=== PATIENT | male | born 1960 | race Caucasian/White ===

== ENCOUNTER 2024-01-17 19:45 | Inpatient (IN) | payer MEDICARE, SELFPAY ==
[2024-01-17 17:15] VITALS: BP 193/83
[2024-01-17 17:25] VITALS: BMI 44.2
[2024-01-17 17:40] LABS: % Basophils 0.7 % (0-2); % Eosinophils 1.2 % (0-6); % Lymphocytes 13.8 % (20.5-51.1); % Monocytes 9.4 % (1.7-9.3); % Neutrophils 73.9 % (42.2-75.2); Absolute Basophils 0.1 10^3/uL (0-0.2); Absolute Eosinophils 0.2 10^3/uL (0-0.7); Absolute Immature Granulocytes 0.1 10^3/uL (0-0.05); Absolute Lymphocytes 1.9 10^3/uL (1.2-3.4); Absolute Monocytes 1.3 10^3/uL (0.1-0.6); Absolute Neutrophils 10.1 10^3/uL (1.4-6.5); Hematocrit 27.5 % (39.0-52.0); Hemoglobin 9.2 g/dL (13.0-18.0); Mean Corp Hgb Conc. 33.5 g/dL (33.0-37.0); Mean Corpuscular Hgb 28.3 pg (27.0-31.0); Mean Corpuscular Volume 84.6 fL (80.0-94.0); Mean Platelet Volume 10.4 fL (7.4-10.4); Nucleated Red Blood Cells % 0 % (-); Platelet Count 307 10^3/uL (130-400); Red Blood Cell Count 3.25 10^6/uL (4.70-6.10); White Blood Cell Count 13.7 10^3/uL (4.8-10.8)
[2024-01-17 17:42] LABS: Urine Albumin Trace (Neg - Trace); Urine Bilirubin Negative (Negative); Urine Character Very Cloudy (Clear); Urine Color Yellow; Urine Glucose 2+ (Negative); Urine Ketone Negative (Negative); Urine Leukocyte 2+ (Negative); Urine Nitrite Negative (Negative); Urine Occult Blood 1+ (Negative); Urine Urobilinogen Negative (Neg - 1+)
[2024-01-17 17:51] LABS: Urine Red Blood Cell 0-2 /HPF (0-2)
[2024-01-17 17:52] LABS: Urine Bacteria Moderate (Negative); Urine White Cell 30-40 /HPF (0-5)
[2024-01-17 17:54] LABS: ALT (SGPT) 20 U/L (0-50); AST (SGOT) 45 U/L (17-59); Albumin 4.1 g/dl (3.5-5.0); Alkaline Phosphatase 104 U/L (38-126); Blood Urea Nitrogen 47 mg/dl (9-20); Calcium 9.6 mg/dl (8.4-10.2); Carbon Dioxide 16 mmol/L (22-30); Chloride 108 mmol/L (98-107); Estimated Creatinine Clearance 47 ml/min; Glucose 379 mg/dl (70-99); Potassium 5.6 mmol/L (3.5-5.1); Sodium 137 mmol/L (135-145); Total Bilirubin 0.3 mg/dl (0.2-1.3); Total Protein 7.6 g/dl (6.3-8.2)
--- NOTE | 2024-01-17 18:08 | ED.GENMED ---
History of Present Illness
General
Chief Complaint: Chest Pain
Source: patient
Time Seen by Provider: 01/17/24 17:55
Travel History
Have you had any contact with someone who has COVID-19?: No
Do you have any symptoms of coronavirus? Fever > 100 degrees, chills, cough, shortness of breath, sore throat, loss of taste or smell, muscle aches, or headache?: No
History of Present Illness
History of Present Illness:
This patient is a 63-year-old male who says that he was feeling his usual self with the exception of left shoulder pain earlier this week, associated with urinary frequency consistent with UTIs that he had in the past. He saw his primary care
doctor and was diagnosed with UTI and prescribed antibiotics but has not been able to fill the prescription because it was not approved by insurance. However, he also did get a cortisone injection in his left shoulder. He was generally feeling
well until yesterday he says he 'just did not feel right', associated with mild headache, and bilateral neck discomfort as well as across his upper back and left shoulder that feels very 'muscular' in nature. This is worse with certain movements,
and is without radiation. He denies chest pain or pressure, dyspnea, fever, chills, abdominal pain, anorexia, nausea, vomiting, diarrhea, constipation, bleeding. He continues to have urinary frequency but denies dysuria or hematuria.
Past History
Past History
ED Past Medical History: Asthma, GERD, HTN, Hypercholesterolemia, IDDM and Other (Kidney stones)
ED Past Surgical History: Urological
Patient has exhibited threatening behavior?: No
PSI?: No
Social History
Tobacco: Other (chews tobacco and smokes Cigar occasionally)
Alcohol: Occasional
Drug: None
Personal:
Living: alone
Employment: Retired
Family History
Family History: Early CAD
Phy Exam
Physical Exam
Physical Exam:
GENERAL: Alert , in no apparent distress
EYE: pupils equal and reactive
NECK: Supple, no significant adenopathy, no bruit noted.
ENT: o/p clr, mmm.
CARDIAC: Regular rate and rhythm .
LUNGS: Clear breath sounds bilaterally, no acute respiratory distress, no wheezes/rales/rhonchi
ABDOMEN: Soft, without focal tenderness, no r/g, no cvat
NEUROLOGICAL: Alert and oriented, no focal neuro deficits, cranial nerves II through XII intact, [id number] normal, motor 5 out of 5, sensory
SKIN: Warm and dry, skin intact.
MUSCULOSKELETAL: No edema, well perfused.
PSYCH: Normal and appropriate interaction.
Scores
Heart Score for Chest Pain Patients
STEMI patient?: Not applicable
Course
Orders/Labs/Results
Orders:
Orders
01/17/24 Dinner
Cholesterol Lowering
At Your Request: Full Participation
Cholesterol Lowerin chitra/15 CHO Diabetic
Potassium, 2 gram
2200 chitra/18 CHO Diabetic
01/17/24 17:17
EKG [Electrocardiogram (*1)] Urgent
Reason for Study: Chest Pain
EKG- Treatment ONCE
01/17/24 17:27
Electrocardiogram (*1) Urgent
Reason for Study: Chest Pain
Cardiac Monitoring- Treatment ONCE
EKG- Treatment ONCE
IV Insert/Care/Rem.- Treatment PRN
O2 Therapy [RESP] Urgent
Titrate/Wean O2 to maintain O2 sat greater than (%): 90
Special Instructions: Maintain sats >/=90%
Pulse Ox/spot Check [RESP] Urgent
Quantity: 1
Special Instructions: ON ROOM AIR
01/17/24 17:29
Complete Blood Count/With Diff Urgent
Comprehensive Metabolic Panel Urgent
Ferritin Urgent
Comment: ADD ON
Folate Urgent
Comment: ADD ON
Iron Urgent
PTT Urgent
Comment: Obtain baseline before beginning heparin infusion if not already collected
Total Iron Binding Urgent
Troponin I Urgent
Urinalysis Reflex To Culture Urgent
Date Specimen was Collected: 01/17/24
Time Specimen was Collected: 17:27
Urine Microscopic Reflex Cult Urgent
Vitamin B12 Urgent
Comment: ADD ON
Urine Culture Urgent
DIEGO Source: U
Specimen Description:
Date Specimen was Collected: 01/17/24
Time Specimen was Collected: 17:27
01/17/24 18:13
0.9% Sodium Chloride 1000 ml [Nss] 2,100 ml IV NOW STA
Aspirin Chewable [Low Strength Aspirin] 324 mg PO NOW STA
Cefepime HCl [Maxipime] 2,000 mg IV NOW STA
Heparin 4,000 units IV NOW STA
CR Chest - 2 Views Urgent
Comment:
Reason For Exam: neck pain
01/17/24 18:15
Heparin 98656 Units/250 ml 25,000 units in 250 ml IV PER PROTOCOL
Weight to be used for heparin protocol in kilograms (kg):: 131.9
Protocol:: Cardiac Tx/Acute Coronary
PTT Goal Range to be used:: PTT 73 to 111 seconds
Order type:: Initial
INITIAL Infusion Dose (UNITS/KG/hr) & then follow protocol:: 12 units/kg/hr
Infusion Dose in UNITS/hr & then follow protocol (UNITS/hr):: 1,000
INFUSION RATE in mL/hr & then follow protocol (mL/hr):: 10
PTT less than or equal to 64 seconds:: Increase rate by 200 units/hr (+ 2 mL/hr)
PTT 64.1 to 72.9 seconds:: Increase rate by 100 units/hr (+ 1 mL/hr)
PTT 73 to 111 seconds:: Target Range. No change in rate.
PTT 111.1 to 130.9 seconds:: Decrease rate by 100 units/hr (- 1 mL/hr)
PTT 131 to 199.9 seconds:: HOLD for 1 hr. Then decrease rate by 200 units/hr (- 2 mL/hr)
PTT greater than or equal to 200 seconds:: HOLD for 2 hrs & Notify Provider. Then decrease by 200 units/hr (-
2 mL/hr)
Lab follow-up:: Each change, PTT q6h until 2 consecutive are therapeutic. Then PTT
daily.
01/17/24 18:16
EKG- Treatment ONCE
01/17/24 18:28
Lactic Acid Q4H
Comment: CANCEL 2nd LACTIC ACID IF 1st LACTIC ACID IS LESS THAN 2
Blood Culture Q30M
DIEGO Source: Blood/Venous
Specimen Description:
01/17/24 18:37
EKG- Treatment ONCE
01/17/24 18:44
Blood Culture Q30M
DIEGO Source: Blood/Venous
Specimen Description:
01/17/24 18:46
Gentamicin Sulfate [Gentamicin] 200 mg 0.9% Sodium Chloride [Nss] 50 ml IV NOW
01/17/24 19:27
Admit/Transfer Patient As Directed
Co-Sign Provider:
Level of Care: Inpatient admission
Assign to:: IVU
Physician / Group: vargas Montero
Diagnosis: Nstemi, symtpomatic uti
Reason for Hospitalization: Nstemi, symtpomatic uti
Expected length of stay greater than two midnights?: Yes
ELOS- Estimated Length of Stay in days: 4
I certify the patient meets the requirements for IP care: Yes
Code Status As Directed
Resuscitation Status: Full Code
CARDIOLOGY CONSULT Routine
Consulting Provider: Priyanka Perez
Was physician already notified: Yes
Reason for consult: nstemi
01/17/24 20:42
Dextrose 50%-Water [Dextrose 50% Syringe] 12.5 grams IV [id number] PRN
Glucagon [GlucaGen] 1 mg IM PRN PRN
Pantoprazole [Protonix] 40 mg PO BID
01/17/24 20:42
VTE Contraindication Routine
VTE Mechanical Device Contraindication: Medical Contraindication
Pharmocologic Contraindication: Medical Contraindication
Comment: pt on iv heparin
Activity As Directed
Activity Level: As Tolerated
Bedside Glucose Monitoring As Directed
Frequency: AC&HS
Additional Instructions:: Change to q6h if pt on TPN, tube feeding or not eating
Vital Signs As Directed
Frequency: Per unit guidelines
Ot Eval And Treat Routine
Pt Eval And Treat Routine
Activity Level: As Tolerated
01/17/24 22:30
Troponin I Q6H
01/18/24 00:32
PTT Urgent
Comment: serial ptt heparin protocol
01/18/24 07:26
Cardiovascular Evaluation IN AM
Complete Blood Count/With Diff IN AM
Comprehensive Metabolic Panel IN AM
Troponin I Q6H
01/18/24 07:30
Insulin Aspart Pen [Novolog Flexpen] 5 units SC AC
01/18/24 08:00
Aspirin Chewable [Low Strength Aspirin] 81 mg PO DAILY
Cefepime HCl [Maxipime] 1,000 mg IV Q12H
Finasteride [Proscar] 5 mg PO DAILY
dulaglutide [Trulicity] See Dose Instructions SC SA
01/18/24 18:00
Atorvastatin [Lipitor] 40 mg PO QPM
01/19/24 04:58
Complete Blood Count/With Diff IN AM
Comprehensive Metabolic Panel IN AM
01/20/24 05:04
Complete Blood Count/With Diff IN AM
Comprehensive Metabolic Panel IN AM
01/21/24 04:41
Complete Blood Count/With Diff IN AM
Comprehensive Metabolic Panel IN AM
Abnormal Lab Results
01/17/24
17:29
WBC 13.7 H 10^3/uL
(4.8-10.8)
RBC 3.25 L 10^6/uL
(4.70-6.10)
Hgb 9.2 L g/dL
(13.0-18.0)
Hct 27.5 L %
(39.0-52.0)
Abs Immat Gran (auto) 0.1 H 10^3/uL
(0-0.05)
Absolute Neuts (auto) 10.1 H 10^3/uL
(1.4-6.5)
Absolute Monos (auto) 1.3 H 10^3/uL
(0.1-0.6)
Immature Gran % 1.0 H %
(0-0.5)
Lymphocytes % 13.8 L %
(20.5-51.1)
Monocytes % 9.4 H %
(1.7-9.3)
Potassium 5.6 H mmol/L
(3.5-5.1)
Chloride 108 H mmol/L
(98-107)
Carbon Dioxide 16 L mmol/L
(22-30)
BUN 47 H mg/dl
(9-20)
Creatinine 2.1 H mg/dL
(0.7-1.3)
Glucose 379 H mg/dl
(70-99)
Iron 39 L ug/dl
(49-181)
% Saturation 9 L %
(20-50)
Ferritin 8.6 L ng/ml
(17.9-464.0)
Troponin I 8.540 H* ng/ml
Ur Occult Blood Reflex 1+ A
(Negative)
Leukocyte Esterase Rfl 2+ A
(Negative)
Urine WBC (Reflex) 30-40 A /HPF
(0-5)
Urine Bacteria (Reflex) Moderate A
(Negative)
Urine Glucose 2+ A
(Negative)
01/17/24 17:29
01/17/24 17:29
Vital Signs
Initial and Last Documented VS:
Initial Vital Signs
Temp Pulse Resp BP Pulse Ox
98.1 F 102 20 193/83 97
01/17/24 17:15 01/17/24 17:15 01/17/24 17:15 01/17/24 17:15 01/17/24 17:15
Last Documented Vital Signs
Temp Pulse Resp BP Pulse Ox
98.9 F 68 18 114/74 98
01/21/24 11:06 01/21/24 12:45 01/21/24 11:06 01/21/24 11:17 01/21/24 11:06
*Critical Care Note
Total Time (30-74mins, 75-104mins- exclusive of procedures): 35
Update Note
Update Note:
Patient presents to the Emergency Department with
Number and Complexity of Problems Addressed at the Encounter
� Chronic conditions affecting care:
� Acute Exacerbation and/or Progression of Chronic Illness:
� Differential Diagnosis includes:
Amount and/or Complexity of Data to be Reviewed and Analyzed
� I performed an independent evaluation of and my interpretation is:
EKG: Read by me, sinus tachycardia, normal axis, no acute ischemia noted
CT:
Xrays:
Laboratory Studies: Baseline anemia noted, new white blood cell count elevation which may be consistent with patient's UTI seen on UA here and/or related to cortisone injection the patient got earlier this week. Continued renal
insufficiency, new mild metabolic acidosis with mild hyperkalemia. Hyperglycemia which again may be related to cortisone injection. Anion gap is 13, not consistent with DKA
Other:
� Review of other/old records reveals: Admitted August 2022 with brown emesis concern for GI bleed, UTI, CKD/ZAYRA, anemia, etc.
� Clinical information was obtained by an independent historian:
� Prescriptions/Medications Considered but not given:
� Further testing considered but not performed:
Risk of Complications and/or Morbidity or Mortality of Patient Management
� Social determinants of health affecting care:
� Discussion with other providers (PCP, Hospitalists, Consultants, etc):
� Escalation of care including admission/observation vs risk of discharge considered: 6:13 PM critical care alerts via community aide that troponin is equal to 8.54. Patient denies chest pain or shortness of breath at this time.
Will repeat ECG at this time, begin aspirin, heparin, and discussed with cardiology. Will also start antibiotics for UTI.
6:31 PM repeat assessment, patient still denies chest pain or shortness of breath. Case discussed with cardiology, Dr. Brenner from, aware of history, physical, including 'muscular' pain at back and neck, lack of chest pain, etc. He agrees that event
most likely occurred yesterday and he is not necessarily a candidate for immediate catheterization tonight, agrees with aspirin and heparin, admission, and we will recheck troponin later tonight to reassess. [place] text sent to hospitalist for
admission
ED Attending Note
-
Portions of this chart may have been created with voice recognition software.� Occasional wrong word or��sound alike� substitutions may have occurred due to the inherent limitations of voice recognition software.
Discharge Plan
Departure
Patient Disposition: Admit
Date of Disposition: 01/17/24
Time of Disposition: 18:32
Presentation/result/management discussed w/ accepting MD/DO: Hospitalist
Condition: Fair
Discharge Problem:
Non-ST elevation GA (NSTEMI)
Interventions
Interventions:
*Risk Screen - Suicide Last Done: 01/17/24 17:15
*General Assessment Last Done: 01/17/24 17:15
*Neglect/Abuse Screening Last Done: 01/17/24 17:15
ED- Fall Risk Assessment Last Done: 01/17/24 19:31
*ED COVID-19 Vaccine History Last Done: 01/17/24 21:01
*Nursing Disposition Last Done: 01/17/24 20:53
ED- Cardiac Assessment Last Done: 01/17/24 17:36
Discharge Date and Time
Discharge Date/Time: 01/17/24 20:53
[2024-01-17] MEDS: NSS 2100 ML IV (18:29)
[2024-01-17] MEDS: LOW STRENGTH ASPIRIN 324 MG PO (18:39)
[2024-01-17 18:44] LABS: Lactic Acid 1.2 mmol/L (0.7-2.0)
[2024-01-17 18:48] LABS: APTT 31.3 Sec (23.4-35.0)
[2024-01-17] MEDS: HEPARIN 4000 UNITS IV (19:01)
[2024-01-17] MEDS: HEPARIN 25000 UNITS/250 ML IV (19:04)
[2024-01-17] MEDS: MAXIPIME 2000 MG IV (19:07)
[2024-01-17 19:14] VITALS: BP 172/82
--- NOTE | 2024-01-17 19:17 | HPS.HSE ---
Addendum entered and electronically signed by Kareem Montero MD 01/17/24 20:27:
I saw and examined the patient.
The DELI DEPARTMENT MANAGER or PA's note was reviewed and I agree with the note.
Comment:
Patient is pleasant 63 years old with history of insulin-dependent obese mellitus, hypertension, hyperlipidemia, GERD, GI bleeding who came to the ER with bilateral neck discomfort after receiving cortisone injection 2 days ago for left shoulder
pain found to have elevated troponin, leukocytosis, hyperglycemia.
Patient denies chest pain or shortness of breath.
Physical exam:
GENERAL : Patient is awake, alert, oriented x3
HEENT: Nonicteric sclerae, PERRLA, EOMI. Oropharynx clear. Moist mucous membranes. Conjunctivae appear well perfused.
CHEST: Chest wall is nontender.
HEART: Regular rate and rhythm without murmurs.
LUNGS: Clear to auscultation bilaterally.
ABDOMEN: Soft, positive bowel sounds, nontender, no organomegaly.
RECTAL: Deferred.
SKIN: No rash, no excessive bruising, petechiae, or purpura.
NEUROLOGIC: Cranial nerves II-XII intact without motor/sensory deficit.
Assessment/plan:
Non-STEMI.
Continue heparin drip.
Cardiology consult
Insulin-dependent diabetes mellitus.
Continue insulin.
Hyperkalemia
Repeat BMP tonight
Leukocytosis secondary to recent steroid use
UTI
Cefepime
CKD 3B.
Lisinopril, metformin should be discontinued on discharge
Original Note:
Family Physician
-
Family Physician: Pranay Martinez
Chief Complaint
-
left shoulder pain upper back pain bilateral neck discomfort, urinary frequency
History of Present Illness
63-year-old male complaining of left shoulder pain earlier this week he reports receiving a cortisone injection in his left shoulder. He also states bilateral neck discomfort since Keven with movement. He states it is relieved temporarily with
Tylenol but then comes back. Denies any injury to his shoulder but states he is unable to put it behind his neck. He also was prescribed an antibiotic for symptomatic UTI which he was unable to fill as it was not approved by his insurance. He is
complaining of urinary frequency but denies dysuria or hematuria he is complaining of feeling well until yesterday when he developed mild headache today with persistent left shoulder pain, neck pain, posterior back pain. He had history of cardiac
cath in 2018 that was negative. He denies chest pain or pressure, shortness breath, cough, fever, chills, abdominal pain, nausea, vomiting, diarrhea. He has past medical history of hypertension, hyperlipidemia, DM2, GERD, GI bleed, asthma, renal
calculi, cigar smoking, chewing tobacco
Medical History
Past Medical History
Past Medical History: Reports Other
Additional Past Medical History:
hypertension
hyperlipidemia
DM2
GERD
GI bleed
asthma
renal calculi
cigar smoking, chewing tobacco
Sleep apnea/CPAP
BPH
Renal calculi
Gallstone
Depression
Obesity
Past Surgical History: Reports Other
Additional Past Surgical History:
Fracture nose 1964
Cardiac cath 2018 no intervention
TURP
Social History
Tobacco: Other (Occasional chewing tobacco)
Alcohol: Occasional
Drug: None
Personal:
Living: With Family
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
Family History
Family History: Early CAD (Mother age 64 [place], DM2, father age 62 [place], sister at )
Allergies / Home Medications
Allergies reflects when Allergies were last updated in Instagram.
Home Medications with original date entered in Instagram
Allergy/Medication List:
Allergies
Allergy/AdvReac Type Severity Reaction Status Date / Time
codeine [Codeine] Allergy vomiting Verified 01/17/24 17:14
iodine [Iodine] Allergy Anaphylaxis Verified 01/17/24 17:14
Home Medications
insulin lispro 100 unit/mL subcutaneous solution (Humalog U-100 Insulin) 10 unit SC BIDWMEAL Diabetes 10/18/17
dulaglutide 1.5 mg/0.5 mL subcutaneous pen injector (Trulicity) 1.5 mg SC SA Diabetes 08/07/22
metformin 500 mg tablet 500 mg PO BIDWMEAL Diabetes 08/07/22
pantoprazole 40 mg tablet,delayed release 40 mg PO BID 90 days #180 tabs 08/10/22
insulin glargine 100 unit/mL (3 mL) subcutaneous pen (Lantus Solostar U-100 Insulin) 16 unit SC DAILY 10/30/22
atorvastatin 40 mg tablet 40 mg PO QPM 01/17/24
finasteride 5 mg tablet 5 mg PO DAILY 01/17/24
lisinopril 10 mg tablet 10 mg PO DAILY 01/17/24
Review of Systems
-
History Source: Patient
A 12 point ROS was completed and negative except as noted: Yes
Constitutional: Denies Fever or Fatigue
EENT: Denies Sore Throat or Runny Nose
Respiratory: Denies Cough or Trouble Breathing
Cardiac: Denies Chest Pain, Diaphoresis, Palpitations or Syncope
Abdomen/GI: Denies Abdominal Pain, Nausea, Vomiting, Diarrhea, Constipated, Bloody Stools or Black Stools
: Reports Frequency; Denies Dysuria, Flank Pain, Incontinence or Difficulty Voiding
Musculoskeletal: Reports Joint Pain (Left shoulder with limited range of motion secondary to pain); Denies Edema
Skin: Denies Itching or Rash
Neurological: Reports Headache and Other (Pain posterior neck increase with movement); Denies Dizzy or Weakness
Endocrine: Reports No Symptoms
Hematologic/Lymphatic: Reports No Symptoms
Psych: Reports Calm
Physical Exam
Vital Signs
Vital Signs
Temp Pulse Resp BP Pulse Ox
98.1 F 89 15 172/82 97
01/17/24 17:15 01/17/24 19:15 06/14/24 19:15 01/17/24 19:14 01/17/24 19:15
Physical Exam
General: Comfortable, Conversant and Obese; No Fever or Chills
HEENT: NormoCephalic, Anicteric, Moist mucous membranes, PERRLA, [place] Conjunctivae and No Ptosis
Respiratory: Clear; No Wheezes, Rales or Rhonchi
Cardiac: S1/S2 and Tachycardia; No Murmur, Rub, Gallop or Peripheral Edema
Breast: Deferred by me
GI: Soft, Non Tender, Non Distended, Normal Bowel Sounds and No Hepatosplenomegaly
Rectal: Deferred by Provider
Genito-urinary: No costovertebral tender
Musculoskeletal: No Clubbing, No Cyanosis, No Edema and Other (Limited range of motion left shoulder when reaching towards neck due to pain)
Skin: Warm and Dry; No Rash or Jaundice
Neuro: AO x 3, No Motor Deficits, Nonfocal/grossly intact, Cranial Nerves Intact and No Sensory Deficits; No Slurred Speech, Facial Droop or Tremors
Psych: Calm
Laboratory Results
-
01/17/24 17:29
01/17/24 17:29
Laboratory Results
APTT 31.3 Sec (23.4-35.0) 01/17/24 17:29
Lactic Acid Cancelled 01/17/24 22:30
Total Bilirubin 0.3 mg/dl (0.2-1.3) 01/17/24 17:29
AST 45 U/L (17-59) 01/17/24 17:29
ALT 20 U/L (0-50) 01/17/24 17:29
Alkaline Phosphatase 104 U/L (38-126) 01/17/24 17:29
Troponin I 8.540 ng/ml H* 01/17/24 17:29
Impression/Plan
-
Impression/plan:
Admit to IVU
#NSTEMI
Troponin 8.5 will trend, check troponin at 10 PM
-IV heparin drip
-Aspirin 325 mg now 81 mg daily
-Check lipid profile
-2D echo
EKG: Sinus tach 103 bpm, QTc 432 MS
#Hyperkalemia in setting of CKD/hyperglycemia
K5.6
Patient was given 2 L of IV NSS in ER
-Hold lisinopril 10 mg daily
-Check BMP at 10 PM
#Acute leukocytosis likely secondary to UTI/steroid injection left shoulder
WBC 13.7 no shift, afebrile, HR 95
-Blood cultures x 2, [employer]
UA WBC 30-40�mod bacteria +2 leukocyte
-IV cefepime, single dose gentamicin
-IV NSS 2000 cc given in ER
#Left shoulder pain with limited range of motion status post steroid injection 01/13/2024
Denies any injury
-Recommend outpatient follow-up
#Anemia-normocytic/CKD 3B
Patient denies any rectal bleeding or hematuria
Hgb 9.2, MCV 84.6
-Check iron panel, B12, folate
#HTN�benign
BP 193/83
-HOLd lisinopril 10 mg daily
- metoprolol succ 25mg now and daily
#DM 2
BS 379
Accu-Cheks SSI, (HgbA1c 7.5 01/08/2024 was prior 14.2 in 2019)
-Hold metformin
-Continue Trulicity 1.5 mg subcu Saturdays
-Continue lispro 10 units twice daily with meals, Lantus 16 units subcu daily
#CKD 3B
Creat 2.1 was 2.7�07 August 2022
-Follow BMP
#GERD/GI bleed Hx
-Continue Protonix 40 mg twice daily
#Hepatic steatosis
#HLD
Check lipid profile
-Continue atorvastatin
#BPH
-Continue finasteride 5 mg daily
#Sleep apnea/CPAP
unsure setting
#Obesity due to excess calorie consumption�BMI 44.2 kg
Affects all aspects of care
Weight loss recommended, low-fat healthy heart 1800 ADA diet
Other PMH:
Renal calculi
Gallstone
Depression-no current meds
DVT prophylaxis
Patient currently on IV heparin drip
Full code
[2024-01-17] MEDS: GENTAMICIN 55 MG IV (19:18)
--- NOTE | 2024-01-17 19:41 | EDRN ---
Assumed care of pt. at change of shift. Ultrasound guided IV placed to lt. AC, heparin infusion and anitbx. infusion infusing. Pt. is on lining layer, denies chest pain, denies arm pain, denies nausea, denies diaphoresis, denies shortness of
breath. Pt. does continue to have frequent urination, does have known UTI and has fluids infusing. Pt. requests to ambulate to restroom 'because I really struggle with the urinal, I can't go with that'. Pt. able to ambulate to restroom w/ IV pole to
maintain infusions, pt. w/ steady gait, denies dizziness/SOB upon return to stretcher. Remains on lining layer, is in NSR.
[2024-01-17 20:26] VITALS: BP 195/100
[2024-01-17] MEDS: TOPROL XL 25 MG PO (20:27)
[2024-01-17 20:35] LABS: Iron 39 ug/dl (49-181)
[2024-01-17 20:44] LABS: Percent Saturation 9 % (20-50); Total Iron Binding Capacity 399 ug/dl (261-462)
[2024-01-17 20:53] VITALS: BMI 44.8
[2024-01-17 20:54] VITALS: BP 188/81
--- NOTE | 2024-01-17 21:00 | PTCARENOTE ---
Rec'd pt from ED via stretcher, able to ambulate independently into the rm. Pt AAOX3 w/no c/o CP, but pt visibly dyspneic on exertion. Pt w/IV Heparin infusing through patent R hand IV line as ordered. Pt's VS assessed, HR in the 70's, BP elevated
at 188/81, BP on reassessment 137/61. Admission assessment completed. Pt w/call robins within reach & no addtl needs at this time. Plan of care ongoing.
[2024-01-17 21:11] LABS: Ferritin 8.6 ng/ml (17.9-464.0)
[2024-01-17 21:42] LABS: Vitamin B12 562 pg/ml (239-931)
[2024-01-17 21:53] LABS: Glucose - Point of Care 292 mg/dl (70-99)
[2024-01-17] MEDS: PROTONIX 40 MG PO (21:56)
[2024-01-17 23:00] VITALS: BP 137/61
[2024-01-18] VITALS (8 sets, daily range): BP systolic 104–178; BP diastolic 66–92; PULSE 64–73; BMI 45.3
[2024-01-18 00:59] LABS: APTT 62.8 Sec (23.4-35.0)
[2024-01-18 01:21] LABS: Blood Urea Nitrogen 48 mg/dl (9-20); Calcium 9.3 mg/dl (8.4-10.2); Carbon Dioxide 18 mmol/L (22-30); Chloride 111 mmol/L (98-107); Estimated Creatinine Clearance 47 ml/min; Glucose 302 mg/dl (70-99); Potassium 5.6 mmol/L (3.5-5.1); Sodium 138 mmol/L (135-145)
--- NOTE | 2024-01-18 06:27 | W.PN.HOSP.TC ---
Today's Communication/Plan
-
Treat high K
NPO until milieu technician sees him
Treat uncontrolled hyperglycemia
Assessment / Plan
Assessment / Plan
Physical exam:
GENERAL : Patient is awake, alert, not in distress, was using C pap, obese.
HEENT: Nonicteric sclerae, PERRLA, EOMI. Oropharynx clear. Moist mucous membranes. Conjunctivae appear well perfused.
CHEST: Chest wall is nontender.
HEART: Regular rate and rhythm without murmurs.
LUNGS: Clear to auscultation bilaterally.
ABDOMEN: Soft, positive bowel sounds, nontender, no organomegaly.
RECTAL: Deferred.
Psych: no agitation, pleasant
NEUROLOGIC: AAAOX3, followed commands.
# Chest / neck discomfort , mostly with movement
No chest pain over night. EKG NSR
Troponin at 10
Ordered Echo
c/w IV heparin gtt, monitor pTT. NPO until cardiology sees him
c/w aspirin , statin, BB
#Insulin-dependent diabetes mellitus.
High BS due to steroid
AM BS 204
Change to high dose ISS. Given Lantus as BID
# Hyperkalemia due ot CKD/ CHANTEL and uncontrolled hyperglycemia
Will give Lokelma
Stopped Lisinopril
#Leukocytosis secondary to recent steroid use
Possible UTI due to cloudy urine
Urine & blood cultures are pending
Empiric Cefepime
# CKD 3B.
Lisinopril, metformin are stopped
Avoid nephrotoxic
# Obesity BMI 44
Total time spent to see the patient, examine the patient on the floor, review data and lab results, discuss treatment plan with patient, nursing staff around 55 minutes
Anticipated Discharge: > 48 hours
Subjective/Interval History
-
Date of Service: January 18, 2024
Objective Data
-
Labs:
Laboratory Results
01/17/24 01/18/24 01/18/24
17:29 00:32 06:00
WBC Pending
Hgb Pending
Hct Pending
Plt Count Pending
APTT 31.3 62.8 H
Sodium 138 Pending
Potassium 5.6 H Pending
Chloride 111 H Pending
Carbon Dioxide 18 L Pending
BUN 48 H Pending
Creatinine 2.1 H Pending
Glucose 302 H Pending
Calcium 9.3 Pending
Total Bilirubin Pending
AST Pending
ALT Pending
Alkaline Phosphatase Pending
01/18/24
07:10
WBC
Hgb
Hct
Plt Count
APTT Pending
Sodium
Potassium
Chloride
Carbon Dioxide
BUN
Creatinine
Glucose
Calcium
Total Bilirubin
AST
ALT
Alkaline Phosphatase
Vital Signs:
Vital Signs
Temp Pulse Resp BP Pulse Ox
98.4 F 72 20 135/66 99
01/18/24 04:30 01/18/24 04:38 01/18/24 04:30 01/18/24 04:38 01/18/24 04:30
I&O
01/16/24 01/17/24 01/18/24
06:59 06:59 06:59
Intake Total 480 / 480
Balance 480 / 480
[2024-01-18 06:43] LABS: Glucose - Point of Care 204 mg/dl (70-99)
[2024-01-18 07:35] LABS: % Basophils 0.6 % (0-2); % Eosinophils 1.7 % (0-6); % Immature Granulocytes 0.8 % (0-0.5); % Monocytes 9.3 % (1.7-9.3); % Neutrophils 72.6 % (42.2-75.2); Absolute Basophils 0.1 10^3/uL (0-0.2); Absolute Eosinophils 0.3 10^3/uL (0-0.7); Absolute Immature Granulocytes 0.1 10^3/uL (0-0.05); Absolute Lymphocytes 2.3 10^3/uL (1.2-3.4); Absolute Monocytes 1.5 10^3/uL (0.1-0.6); Absolute Neutrophils 11.3 10^3/uL (1.4-6.5); Hematocrit 28.1 % (39.0-52.0); Hemoglobin 8.8 g/dL (13.0-18.0); Mean Corp Hgb Conc. 31.3 g/dL (33.0-37.0); Mean Corpuscular Hgb 27.6 pg (27.0-31.0); Mean Corpuscular Volume 88.1 fL (80.0-94.0); Mean Platelet Volume 10.5 fL (7.4-10.4); Nucleated Red Blood Cells % 0 % (-); Platelet Count 287 10^3/uL (130-400); Red Blood Cell Count 3.19 10^6/uL (4.70-6.10); White Blood Cell Count 15.5 10^3/uL (4.8-10.8)
[2024-01-18 07:53] LABS: APTT 85.1 Sec (23.4-35.0)
--- NOTE | 2024-01-18 08:22 | CON.CAR ---
Addendum entered and electronically signed by Priyanka Perez MD 01/18/24 09:19:
patient is seen and evaluated personally. I agree with the note, documentation and plan of care as below.
63 years old man with hypertension, dyslipidemia, type 2 diabetes mellitus, prior ZAYRA, CKD3b, JOHN on CPAP, obesity, and current chewing tobacco is admitted with UTI and is being terated with antibiotics. The trop was checked and were elevated
significantly. no chest pain or pressure or any angina equivalent. He is diabetic and is at risk of silent ID. His last cath showed no significant CAD. At this time, we will continue to treat him with antibiotics for UTI and heparin for possible ACS
and watch for any chest pain. Dye prep on Saturday night and plan for cath on Saturday.
Original Note:
Consultation
Consultation Request
Date/Time Consultation Requested: 01/17/2024 19:30
Date/Time Consultation Performed: 01/18/2024 08:20
Requesting Provider: JEEVAN Smith
Performing Provider: JEEVAN Cm for Dr. Perez
Reason for Consultation: NSTEMI
Medical History
-
Chief Complaint: Bilateral neck pain
History of Present Illness:
Tristen Riddle is a 63-year-old male with hypertension, dyslipidemia, type 2 diabetes mellitus, prior ZAYRA, CKD3b, JOHN on CPAP, obesity, and current chewing tobacco who presented to the emergency department with a chief complaint of bilateral neck
discomfort. He had seen his PCP for urinary frequency and urgency. He was diagnosed with a UTI. He was awaiting authorization from his insurance for an antibiotic. Earlier this week he received a steroid injection into his left shoulder. He has
been having ongoing left shoulder pain. It does not seem to be exertional. He believes it started about a month ago. He states he is glucose 'skyrocketed' since the injection. Yesterday, he developed a mild headache and his left shoulder pain
persisted. It radiated into his neck and into the middle of his back. He denies associated symptoms of chest pain/pressure, shortness of breath, dizziness, cough, fever, chills, abdominal pain. He presented to the emergency department. He was
given a dose of gentamicin. His troponin on arrival was 8.540. His EKG is stable. He was admitted for further workup. He is on the hospital service and is currently receiving cefepime for his symptomatic UTI.
During his prior hospitalization he was seen by Dr. Mendez.
Past Medical History
Past Medical History: GERD, HTN, Hypercholesterolemia, NIDDM, Renal Failure (Zayra with CKD) and Other (JOHN on CPAP)
Past Surgical History: Urological
Social History
Tobacco: Former Smoker (Occasional tobacco use [cigar currently chews tobacco], )
Alcohol: Occasional
Drug: None
Personal:
Employment: Retired
Family History
Family History: Early CAD (Father and mother in early 60s)
Allergies / Home Medications
Allergy/AdvReac Type Severity Reaction Status Date / Time
codeine [Codeine] Allergy vomiting Verified 01/17/24 17:14
iodine [Iodine] Allergy Anaphylaxis Verified 01/17/24 17:14
�Medication �Instructions �Recorded �Confirmed �Type
insulin lispro 100 unit/mL 10 unit SC BIDWMEAL Diabetes 10/18/17 01/17/24 History
subcutaneous solution (Humalog
U-100 Insulin)
dulaglutide 1.5 mg/0.5 mL 1.5 mg SC SA Diabetes 08/07/22 01/17/24 History
subcutaneous pen injector
(Trulicity)
metformin 500 mg tablet 500 mg PO BIDWMEAL Diabetes 08/07/22 01/17/24 History
pantoprazole 40 mg tablet,delayed 40 mg PO BID 90 days #180 tabs 08/10/22 01/17/24 Rx
release
insulin glargine 100 unit/mL (3 16 unit SC DAILY 10/30/22 01/17/24 History
mL) subcutaneous pen (Lantus
Solostar U-100 Insulin)
atorvastatin 40 mg tablet 40 mg PO QPM 01/17/24 01/17/24 History
finasteride 5 mg tablet 5 mg PO DAILY 01/17/24 01/17/24 History
lisinopril 10 mg tablet 10 mg PO DAILY 01/17/24 01/17/24 History
Review of Systems
-
History Source: Patient
All other systems: Negative unless noted
Constitutional: No Symptoms
Respiratory: No Symptoms
Cardiac: No Symptoms
Abdomen/GI: No Symptoms
: Frequency and Urgency
Musculoskeletal: No Symptoms
Skin: No Symptoms
Neurological: No Symptoms
Endocrine: No Symptoms
Hematologic/Lymphatic: No Symptoms
Physical Exam
Vital Signs
Temp Pulse Resp BP Pulse Ox
97.4 F 72 20 135/66 98
01/18/24 07:00 01/18/24 04:38 01/18/24 07:00 01/18/24 04:38 01/18/24 07:00
Lab Results
01/18/24 07:26
Troponin I 13.900 ng/ml H* D 01/18/24 07:26
Physical Exam
General: Well Developed, Well Nourished, No Apparent Distress and Comfortable
HEENT: Normocephalic, Anicteric and Moist Mucous Membranes
Respiratory: Clear and Non Labored Respirations
Cardiac: S1/S2 and Regular Rhythm
Breast: Deferred by me
GI: Soft, Non Distended and Normal Bowel Sounds
Rectal: Deferred by Provider
Genito-urinary: No Costovertebral Tender
Musculoskeletal: No Clubbing, No Cyanosis and No Edema
Skin: Warm and Dry
Neuro: AO x 3
Hematologic/Lymphatic: No Lymphadenopathy
Psych: Calm
Impression / Plan
-
NSTEMI
-Pain free
-Normal coronary arteries by cardiac catheterization 10/18/2017 prompted by angina with abnormal stress echo
-Trend troponin to peak, currently 13.900
-Continue heparin gtt
-ASA 324mg yesterday, continue 81mg daily
-He will need pre-treatment prior to cardiac catheterization (iodine allergy)
UTI, antibiotics per primary
Hyperkalemia, lisinopril on hold
HTN
-Metoprolol succinate started by primary service
-Hold lisinopril with hyperkalemia
CKD3b
-Chronic moderate hydronephrosis of right kidney
-Follow renal function (he received gentamicin in the ER)
Left shoulder pain S/P cortisone injection
Type II DM, with hyperglycemia, Hgba1c pending
HLD, LDL 51, continue atorvastatin 40mg
Obesity, BMI 44, he would benefit from weight loss
Tobacco use (chew), cessation recommended
JOHN on CPAP
Prior hypercalcemia, stable
BPH
Data Reviewed
-
EKG: Report Reviewed by me (Sins rhythm, rate 93)
Radiology: Report Reviewed by me (CXR: No acute cardiopulmonary process.)
Labs: Labs Reviewed by me
Old Records: Reviewed
[2024-01-18 08:25] LABS: ALT (SGPT) 19 U/L (0-50); AST (SGOT) 49 U/L (17-59); Albumin 3.9 g/dl (3.5-5.0); Alkaline Phosphatase 98 U/L (38-126); Blood Urea Nitrogen 45 mg/dl (9-20); Calcium 9.3 mg/dl (8.4-10.2); Carbon Dioxide 19 mmol/L (22-30); Chloride 113 mmol/L (98-107); Estimated Creatinine Clearance 50 ml/min; Glucose 215 mg/dl (70-99); HDL Cholesterol 40 mg/dl; LDL Cholesterol, Calculated 51 mg/dl; Potassium 5.8 mmol/L (3.5-5.1); Sodium 140 mmol/L (135-145); Total Bilirubin 0.3 mg/dl (0.2-1.3); Total Cholesterol 117 mg/dl (50-199); Total Protein 7.5 g/dl (6.3-8.2); Triglyceride 134 mg/dl (10-149); Very Low Density Lipoprotein 26 mg/dl (0-30); eGFR 36.58
[2024-01-18] MEDS: MAXIPIME 1000 MG IV ×2 (08:32→19:36)
[2024-01-18] MEDS: PROSCAR 5 MG PO (08:33)
[2024-01-18] MEDS: PROTONIX 40 MG PO ×2 (08:33→19:36)
[2024-01-18] MEDS: STERILE WATER FOR INJECTION 10 ML IV ×2 (08:33→19:37)
[2024-01-18] MEDS: LOW STRENGTH ASPIRIN 81 MG PO (08:33)
[2024-01-18] MEDS: TOPROL XL 25 MG PO (08:33)
[2024-01-18] MEDS: LOKELMA 10 GRAM PO (10:07)
[2024-01-18] MEDS: LANTUS 0.149999999999999994 UNITS SC ×2 (10:11→22:37)
[2024-01-18] MEDS: NOVOLOG FLEXPEN 5 UNITS SC (10:12)
[2024-01-18 12:25] LABS: Glucose - Point of Care 228 mg/dl (70-99)
[2024-01-18] MEDS: NOVOLOG FLEXPEN 10 UNITS SC ×2 (13:00→17:00)
[2024-01-18] MEDS: NOVOLOG FLEXPEN-HIGH RESISTANCE 4 UNITS SC ×2 (13:01→17:00)
--- NOTE | 2024-01-18 14:24 | PTCARENOTE ---
assessment as documented. Stable with no c/o chest pain.
[2024-01-18 15:09] LABS: APTT 80.7 Sec (23.4-35.0)
[2024-01-18] MEDS: HEPARIN 25000 UNITS/250 ML IV (16:04)
[2024-01-18 17:03] LABS: Glucose - Point of Care 249 mg/dl (70-99)
[2024-01-18] MEDS: LIPITOR 40 MG PO (17:42)
[2024-01-18] MEDS: TYLENOL 650 MG PO (19:36)
[2024-01-18] MEDS: FLUSH (NSS) 2 FLUSH IV (19:37)
--- NOTE | 2024-01-18 20:00 | PTCARENOTE ---
Assumed care of pt from prev nsg shift. Pt AAOX3 w/no c/o CP, but pt mildy dyspneic on exertion. Pt w/IV Heparin infusing through patent R hand IV line as ordered. Pt's VS assessed, HR in the 70's, BP elevated at 178/91. Pt c/o 4-12/12 anterior
headache. [facility] contacted & ordered entered for PRN PO Tylenol. Tylenol administered as ordered. Pt requesting to go on CPAP early. Resp notified & in to see pt. Pt w/call robins within reach & no addtl needs at this time. Plan of care ongoing.
[2024-01-18 22:42] LABS: Glucose - Point of Care 151 mg/dl (70-99)
[2024-01-19] VITALS (7 sets, daily range): BP systolic 118–172; BP diastolic 64–82; PULSE 58–60
[2024-01-19 05:16] LABS: APTT 100.1 Sec (23.4-35.0)
[2024-01-19 05:28] LABS: % Basophils 0.8 % (0-2); % Eosinophils 2.5 % (0-6); % Immature Granulocytes 1.3 % (0-0.5); % Lymphocytes 23.6 % (20.5-51.1); % Monocytes 8.6 % (1.7-9.3); % Neutrophils 63.2 % (42.2-75.2); Absolute Basophils 0.1 10^3/uL (0-0.2); Absolute Eosinophils 0.4 10^3/uL (0-0.7); Absolute Immature Granulocytes 0.2 10^3/uL (0-0.05); Absolute Lymphocytes 3.9 10^3/uL (1.2-3.4); Absolute Monocytes 1.4 10^3/uL (0.1-0.6); Absolute Neutrophils 10.5 10^3/uL (1.4-6.5); Mean Corpuscular Hgb 27.8 pg (27.0-31.0); Mean Corpuscular Volume 89.5 fL (80.0-94.0); Mean Platelet Volume 10.8 fL (7.4-10.4); Nucleated Red Blood Cells % 0 % (-); Platelet Count 318 10^3/uL (130-400); Red Blood Cell Count 3.24 10^6/uL (4.70-6.10); Red Cell Dist. Width 12.9 % (11.5-14.5); White Blood Cell Count 16.6 10^3/uL (4.8-10.8)
[2024-01-19 05:51] LABS: ALT (SGPT) 20 U/L (0-50); AST (SGOT) 39 U/L (17-59); Alkaline Phosphatase 103 U/L (38-126); Blood Urea Nitrogen 53 mg/dl (9-20); Calcium 9.7 mg/dl (8.4-10.2); Carbon Dioxide 17 mmol/L (22-30); Chloride 109 mmol/L (98-107); Estimated Creatinine Clearance 46 ml/min; Glucose 134 mg/dl (70-99); Potassium 5.8 mmol/L (3.5-5.1); Sodium 139 mmol/L (135-145); Total Bilirubin 0.4 mg/dl (0.2-1.3); Total Protein 7.9 g/dl (6.3-8.2); eGFR 32.63
--- NOTE | 2024-01-19 06:39 | W.PN.HOSP.TC ---
Today's Communication/Plan
-
Treat high K
Avoid diuretic
Renal prep with NS gtt
c/w current insulin regimen
Add PRN Ativan
c/w IV Heparin gtt
Assessment / Plan
Assessment / Plan
Physical exam:
GENERAL : Patient is awake, alert, not in distress, was using C pap, obese.
HEENT: Nonicteric sclerae, PERRLA, EOMI. Oropharynx clear. Moist mucous membranes. Conjunctivae appear well perfused.
CHEST: Chest wall is nontender.
HEART: Regular rate and rhythm without murmurs.
LUNGS: Clear to auscultation bilaterally.
ABDOMEN: Soft, positive bowel sounds, nontender, no organomegaly.
RECTAL: Deferred.
Psych: no agitation, pleasant
NEUROLOGIC: AAAOX3, followed commands.
# Hx of allergy to iodine
On Protocol with high dose prednisone & Benadryl
He denies side effects
Will add PRN Ativan for insomnia/ anxiety
# NSTMI
He presented with chest / neck discomfort , mostly with movement
No chest pain over night. EKG NSR
Troponin peak at 10
Ordered Echo
c/w IV heparin gtt, monitor PTT. NPO until cardiology sees him
c/w aspirin , statin, BB
#Insulin-dependent diabetes mellitus.
Had high BS due to steroid
AM BS 137
Changed to high dose ISS. Given Lantus as BID
# Hyperkalemia due ot CKD/ CHANTEL and uncontrolled hyperglycemia
Will give Lokelma as BID
Stopped Lisinopril
#UTI with Leukocytosis secondary to recent steroid use
Possible UTI due to cloudy urine although denies symptoms.
Urine culture is positive for MSSA, will change to IV Ancef.
Blood cultures are NGTD
# CKD 3B.
WIll do renal prep before cath with NS at 125 cc/hour. It is important to have cath due to high possibility of CAD.
Lisinopril, metformin are stopped
Avoid nephrotoxic
Encourage fluid intake
Will consult nephrology.
# Obesity BMI 44
Total time spent to see the patient, examine the patient on the floor, review data and lab results, discuss treatment plan with patient, nursing staff around 55 minutes
Anticipated Discharge: > 48 hours
Subjective/Interval History
-
Date of Service: January 19, 2024
No chest pain
No sob
No nausea or vomiting
Objective Data
-
Labs:
Laboratory Results
01/19/24
04:58
WBC Pending
Hgb Pending
Hct Pending
Plt Count Pending
APTT 100.1 H
Sodium 139
Potassium 5.8 H
Chloride 109 H
Carbon Dioxide 17 L
BUN 53 H
Creatinine 2.2 H
Glucose 134 H
Calcium 9.7
Total Bilirubin 0.4
AST 39
ALT 20
Alkaline Phosphatase 103
Vital Signs:
Vital Signs
Temp Pulse Resp BP Pulse Ox
98.1 F 72 20 172/81 100
01/19/24 04:47 01/19/24 05:00 01/19/24 04:47 01/19/24 04:47 01/19/24 04:47
I&O
01/17/24 01/18/24 01/19/24
06:59 06:59 06:59
Intake Total 480 / 480 1250 / 1250
Balance 480 / 480 1250 / 1250
[2024-01-19 07:01] LABS: Glucose - Point of Care 137 mg/dl (70-99)
--- NOTE | 2024-01-19 07:36 | W.PN.CD ---
Today's Communication / Plan
-
-Continue treatment with antibiotics for UTI.
-Diet prep today. N.p.o. after midnight for cath tomorrow
Impression / Plan
-
NSTEMI
-Pain free
-Normal coronary arteries by cardiac catheterization 10/18/2017 prompted by angina with abnormal stress echo
-Trend troponin to peak, currently 13.900
-Continue heparin gtt
-ASA 324mg yesterday, continue 81mg daily
-He will need pre-treatment prior to cardiac catheterization (iodine allergy)
UTI, antibiotics per primary
Hyperkalemia, lisinopril on hold
HTN
-Metoprolol succinate started by primary service
-Hold lisinopril with hyperkalemia
CKD3b
-Chronic moderate hydronephrosis of right kidney
-Follow renal function (he received gentamicin in the ER)
Left shoulder pain S/P cortisone injection
Type II DM, with hyperglycemia, Hgba1c pending
HLD, LDL 51, continue atorvastatin 40mg
Obesity, BMI 44, he would benefit from weight loss
Tobacco use (chew), cessation recommended
JOHN on CPAP
Prior hypercalcemia, stable
BPH
Physical Exam
Vital Signs/Labs
Vital Signs
Temp Pulse Resp BP Pulse Ox
98.1 F 72 20 172/81 100
01/19/24 04:47 01/19/24 05:00 01/19/24 04:47 01/19/24 04:47 01/19/24 04:47
01/18/24 01/19/24 01/20/24
06:59 06:59 06:59
Actual Weight 135 kg
01/19/24 04:58
01/19/24 04:58
APTT 100.1 Sec (23.4-35.0) H 01/19/24 04:58
Triglycerides 134 mg/dl (10-149) 01/18/24 07:26
LDL Cholesterol, Calc 51 mg/dl 01/18/24 07:26
VLDL Cholesterol, Calc 26 mg/dl (0-30) 01/18/24 07:26
HDL Cholesterol 40 mg/dl 01/18/24 07:26
LAB Results
01/17/24 01/18/24 01/18/24
17:29 00:32 07:26
Troponin I 8.540 H* 10.500 H* 13.900 H* D
01/18/24 01/18/24
14:48 16:00
Troponin I 9.940 H* D Cancelled
Physical Exam
Constitutional: No acute distress and Comfortable
EENT: Anicteric and Moist mucous membranes
Cardiovascular: Rhythm & rate is regular, Pedal edema present, JVD present and Systolic murmur present
Respiratory: Respiratory effort normal and Lungs clear to auscul.
GI: Soft, Non tender and Normal bowel sounds
Neuro/Psych: Alert, Oriented and AO x 3
Data Reviewed
-
Date of Service: January 19, 2024
Medical Decision Making: Reviewed Test Results and Independent Historian Assessment
EKG: Tracing Personally Visualized and interpreted
Echo: Report Reviewed by me
Labs: Labs Reviewed by me
Old Records: Reviewed
[2024-01-19] MEDS: MAXIPIME 1000 MG IV (08:05)
[2024-01-19] MEDS: TOPROL XL 25 MG PO (08:06)
[2024-01-19] MEDS: LOW STRENGTH ASPIRIN 81 MG PO (08:06)
[2024-01-19] MEDS: LANTUS 0.149999999999999994 UNITS SC ×2 (08:06→19:56)
[2024-01-19] MEDS: PROSCAR 5 MG PO (08:06)
[2024-01-19] MEDS: PROTONIX 40 MG PO ×2 (08:06→19:41)
[2024-01-19] MEDS: NOVOLOG FLEXPEN 10 UNITS SC ×3 (08:07→16:59)
[2024-01-19] MEDS: NOVOLOG FLEXPEN-HIGH RESISTANCE 1 UNITS SC ×2 (08:08→17:00)
[2024-01-19] MEDS: STERILE WATER FOR INJECTION 10 ML IV (08:13)
[2024-01-19] MEDS: LOKELMA 10 GRAM PO (10:01)
[2024-01-19] MEDS: NSS 1000 IV (10:01)
--- NOTE | 2024-01-19 10:09 | W.CON.NEPH ---
Consultation
-
Date/Time Consultation Requested: January 19, 2024 945 am
Date/Time Consultation Performed: January 19, 2024 1000 AM
Requesting Provider: Dr. Oviedo
Performing Provider: Dr. Wise
Reason for Consultation: CKD
Medical History
-
Chief Complaint: Chronic kidney disease stage IIIb/hyperkalemia
History of Present Illness:
The patient is a 63-year-old male with a history of chronic kidney disease stage IIIb who maintains a baseline creatinine in the low to mid 2s. He has a history of diabetes maintained on insulin therapy. He has a history of hypertension for which
he is maintained on lisinopril. The patient presented to the hospital on 01/17/2024 with bilateral neck discomfort following cortisone injections 2 days prior. On presentation to the hospital he was noted to have positive troponin levels and
findings consistent with non-ST elevation NE. Further complications include urinary tract infection for which she is now undergoing antibiotic therapy.. He is maintained on heparin drip now for acute coronary syndrome and is to undergo cardiac
catheterization tomorrow. We were consulted in regards to his chronic kidney disease prior to the procedure. Of note there is also an associated metabolic acidosis and hyperkalemia
Past Medical History
Type 2 diabetes
Chronic kidney disease stage IIIb
Obesity
Hypertension
Hyperlipidemia
Obstructive sleep
Social History
Tobacco: Former Smoker
Alcohol: Occasional
Family History
No chronic kidney disease
Allergies / Home Medications
Allergy/AdvReac Type Severity Reaction Status Date / Time
codeine [Codeine] Allergy vomiting Verified 01/17/24 17:14
iodine [Iodine] Allergy Anaphylaxis Verified 01/17/24 17:14
�Medication �Instructions �Recorded �Confirmed �Type
insulin lispro 100 unit/mL 10 unit SC BIDWMEAL Diabetes 10/18/17 01/17/24 History
subcutaneous solution (Humalog
U-100 Insulin)
dulaglutide 1.5 mg/0.5 mL 1.5 mg SC SA Diabetes 08/07/22 01/17/24 History
subcutaneous pen injector
(Trulicity)
metformin 500 mg tablet 500 mg PO BIDWMEAL Diabetes 08/07/22 01/17/24 History
pantoprazole 40 mg tablet,delayed 40 mg PO BID 90 days #180 tabs 08/10/22 01/17/24 Rx
release
insulin glargine 100 unit/mL (3 16 unit SC DAILY Diabetes 10/30/22 01/17/24 History
mL) subcutaneous pen (Lantus
Solostar U-100 Insulin)
atorvastatin 40 mg tablet 40 mg PO QPM High Cholesterol 01/17/24 01/17/24 History
finasteride 5 mg tablet 5 mg PO DAILY Urinary Issue 01/17/24 01/17/24 History
lisinopril 10 mg tablet 10 mg PO DAILY Blood Pressure 01/17/24 01/17/24 History
Review of Systems
-
History Source: Patient
All other systems: Negative unless noted
EENT: No Symptoms
Respiratory: No Symptoms
Cardiac: No Symptoms
Abdomen/GI: No Symptoms
: No Symptoms
Musculoskeletal: Other (Posterior neck pain)
Skin: No Symptoms
Neurological: No Symptoms
Endocrine: No Symptoms
Hematologic/Lymphatic: No Symptoms
Physical Exam
Vital Signs
Vital Signs
Temp Pulse Resp BP Pulse Ox
98.6 F 69 18 172/81 98
01/19/24 08:10 01/19/24 08:06 01/19/24 08:10 01/19/24 04:47 01/19/24 08:10
Lab Results
01/19/24 04:58
01/19/24 04:58
WBC 16.6 10^3/uL (4.8-10.8) H 01/19/24 04:58
RBC 3.24 10^6/uL (4.70-6.10) L 01/19/24 04:58
Hgb 9.0 g/dL (13.0-18.0) L 01/19/24 04:58
Hct 29.0 % (39.0-52.0) L 01/19/24 04:58
Plt Count 318 10^3/uL (130-400) 01/19/24 04:58
Sodium 139 mmol/L (135-145) 01/19/24 04:58
Potassium 5.8 mmol/L (3.5-5.1) H 01/19/24 04:58
Chloride 109 mmol/L (98-107) H 01/19/24 04:58
Carbon Dioxide 17 mmol/L (22-30) L 01/19/24 04:58
BUN 53 mg/dl (9-20) H 01/19/24 04:58
Creatinine 2.2 mg/dL (0.7-1.3) H 01/19/24 04:58
eGFR 32.63 01/19/24 04:58
Glucose 134 mg/dl (70-99) H 01/19/24 04:58
Calcium 9.7 mg/dl (8.4-10.2) 01/19/24 04:58
Albumin 4.0 g/dl (3.5-5.0) 01/19/24 04:58
Physical Exam
General: AOx3, Nontoxic , NAD
HEENT: PERRL, EOMI, Anicteric, Conjunctivae Clear, Ear/Nose Intact, Hearing Normal, Oropharynx Clear/Moist, Dentition Intact, Facial Symmetry, Neck Supple, Neck: Trachea Midline, No JVD and No Thyromegaly, no Bruits
Respiratory: Clear to auscultation bilaterally with normal lung exersion
Cardiac: S1/S2 and Regular Rate/Rhythm
Breast: Deferred by me
Abdomen: Soft, Nontender, Nondistended, Normal Bowel Sounds and No Hepatosplenomegaly
Rectal: Deferred by Provider
Genito-urinary: No Costovertebral Tenderness
Extremities: No Clubbing, No Cyanosis and trace ankle Edema
Skin: No Rash or open lesions
Neuro: Nonfocal/Grossly Intact, CN II-XII (Intact) and Strength (Musculoskeletal exam 5 out of 5 both upper and lower extremities)
Hematologic/Lymphatic: No Cervical Lymphadenopathy, No Submandibular Lymphadenopathy and No Supraclavicular Lymphadenopathy
Psych: Mood/afflect pleasant, Insight/judgement good and Appropriate
Vascular: plus 1 pedal and radial pulses
Data Reviewed
-
Radiology: Image Personally Visualized and interpreted (CXR without CHF PNA)
Medical Tests (Nuc Med, Echo etc): Other (EKG sinus rhythm without acute ST wave abnormality)
Labs: Labs Reviewed by me (ramu)
Old Records: Reviewed (Old records reviewd creatinine 2.7 from august 2022)
Assessment/Plan
-
Impression:
NSTEMI (troponin peak 10)
UTI
CKD 3b/4
Hyperkalemia
Metabolic acidosis
Diabetes
Hypertension
Plan:
GFR at baseline
Will provide alkaline IV fluids for contrast prophylaxis for cardiac catheterization tomorrow
Hyperkalemia treated with alkaline IV fluids and Lokelma
CHANTEL inhibitor held, metformin held in setting of metabolic acidosis
Can utilize low dose Procardia for blood pressure control while off CHANTEL
[2024-01-19] MEDS: SODIUM BICARBONATE 1075 MEQ IV ×2 (11:25→23:13)
[2024-01-19] MEDS: PROCARDIA XL (EXTENDED RELEASE) 30 MG PO (11:32)
[2024-01-19 11:33] LABS: Glucose - Point of Care 180 mg/dl (70-99)
[2024-01-19] MEDS: NOVOLOG FLEXPEN-HIGH RESISTANCE 2 UNITS SC (11:47)
--- NOTE | 2024-01-19 14:05 | PTCARENOTE ---
01/19/24 Received patient this AM in bed. Pt with no complaints this AM. Pt denies chest pain, shortness of breath, palpitations. Pt with IV Heparin infusing at 11ml/hr without difficulty. Vitals are stable. Nephrology consulted, IVF started 0.45%
NSS w/Na Bicarb @100 ml/hr. Procardia started. Labs ordered for AM. Explained to pt about being NPO after MN for his Cath Saturday. Pt is also ordered an Echo. Will monitor throughout shift.
[2024-01-19] MEDS: HEPARIN 25000 UNITS/250 ML IV (14:59)
[2024-01-19] MEDS: ANCEF 5 IV ×2 (15:25→23:13)
[2024-01-19 16:27] LABS: Glucose - Point of Care 121 mg/dl (70-99)
[2024-01-19] MEDS: LIPITOR 40 MG PO (17:22)
[2024-01-19] MEDS: TYLENOL 650 MG PO (19:41)
[2024-01-19 19:54] LABS: Glucose - Point of Care 99 mg/dl (70-99)
[2024-01-19] MEDS: DELTASONE 50 MG PO (21:03)
[2024-01-19 21:07] LABS: Glucose - Point of Care 84 mg/dl (70-99)
[2024-01-19 21:55] LABS: Glucose - Point of Care 92 mg/dl (70-99)
[2024-01-20] VITALS (18 sets, daily range): BP systolic 132–184; BP diastolic 62–88; PULSE 58–85; BMI 44.4
[2024-01-20] MEDS: DELTASONE 50 MG PO ×2 (02:00→08:41)
--- NOTE | 2024-01-20 05:21 | PTCARENOTE ---
Pt awake intermittently t/o the night. IVF and Heparin gtt infusing as ordered. Pt slept with Bipap without issues. Pt denies any complaints. Pt kept NPO after midnight for scheduled procedure today. HR in the 70's in NSR on the monitor. Will
continue to monitor.
[2024-01-20 05:22] LABS: APTT 66.9 Sec (23.4-35.0)
[2024-01-20 05:32] LABS: % Basophils 0.4 % (0-2); % Eosinophils 0.1 % (0-6); % Immature Granulocytes 0.7 % (0-0.5); % Lymphocytes 10.3 % (20.5-51.1); % Monocytes 0.7 % (1.7-9.3); % Neutrophils 87.8 % (42.2-75.2); Absolute Basophils 0.1 10^3/uL (0-0.2); Absolute Immature Granulocytes 0.1 10^3/uL (0-0.05); Absolute Lymphocytes 1.7 10^3/uL (1.2-3.4); Absolute Monocytes 0.1 10^3/uL (0.1-0.6); Absolute Neutrophils 14.1 10^3/uL (1.4-6.5); Hematocrit 26.5 % (39.0-52.0); Hemoglobin 8.7 g/dL (13.0-18.0); Mean Corp Hgb Conc. 32.8 g/dL (33.0-37.0); Mean Corpuscular Hgb 27.6 pg (27.0-31.0); Mean Corpuscular Volume 84.1 fL (80.0-94.0); Nucleated Red Blood Cells % 0 % (-); Platelet Count 305 10^3/uL (130-400); Red Blood Cell Count 3.15 10^6/uL (4.70-6.10); Red Cell Dist. Width 13.1 % (11.5-14.5); White Blood Cell Count 16.1 10^3/uL (4.8-10.8)
[2024-01-20 05:38] LABS: ALT (SGPT) 20 U/L (0-50); AST (SGOT) 35 U/L (17-59); Albumin 3.9 g/dl (3.5-5.0); Alkaline Phosphatase 120 U/L (38-126); Blood Urea Nitrogen 60 mg/dl (9-20); Calcium 9.1 mg/dl (8.4-10.2); Carbon Dioxide 17 mmol/L (22-30); Chloride 107 mmol/L (98-107); Estimated Creatinine Clearance 45 ml/min; Glucose 161 mg/dl (70-99); Potassium 5.8 mmol/L (3.5-5.1); Sodium 136 mmol/L (135-145); Total Bilirubin 0.3 mg/dl (0.2-1.3); Total Protein 7.7 g/dl (6.3-8.2); eGFR 32.63
[2024-01-20 05:44] LABS: Glucose - Point of Care 181 mg/dl (70-99)
[2024-01-20] MEDS: NOVOLOG FLEXPEN-HIGH RESISTANCE 2 UNITS SC (05:46)
[2024-01-20] MEDS: LOW STRENGTH ASPIRIN 81 MG PO (08:41)
[2024-01-20] MEDS: BENADRYL 50 MG PO (08:41)
[2024-01-20] MEDS: PROTONIX 40 MG PO ×2 (08:41→21:16)
--- NOTE | 2024-01-20 08:59 | W.PN.CD ---
Addendum entered and electronically signed by Maximiliano Jacques DO 01/20/24 12:21:
Cardiac catheterization revealed luminal irregularities throughout the coronary tree.
The first diagonal was a significant vessel and was occluded with 99% stenosis, RIC I flow.
Given the troponin elevation, an attempt was made to open this vessel.
The vessel was very technically challenging to open, though ultimately the patient did receive a balloon angioplasty (2.25 x 12 NC balloon) which reduced the stenosis to 50% and restored RIC III flow.
Unfortunately, stents could not be delivered, so the patient was left with an angioplasty result only.
Start DAPT.
Risk factor modification.
Original Note:
Today's Communication / Plan
-
Cardiac catheterization today to clarify coronary anatomy.
Patient has been pre-treated for iodine allergy.
Impression / Plan
-
Impression/Plan: 63 y/o male with IDDM2, HTN, HLD, JOHN on CPAP and CKD3b admitted with UTI and concomitant neck pain, found to have NSTEMI.
#NSTEMI
-Acute.
-Currently chest pain free.
-Normal coronary arteries by cardiac catheterization 10/18/2017 prompted by angina with abnormal stress echo.
-Troponin peaked at 13.9.
-Continue heparin gtt.
-Continue aspirin, metoprolol, atorvastatin and nifedipine.
-Cardiac catheterization today to clarify coronary anatomy.
-He has been pre-treated for iodine allergy.
#UTI
-Acute, complicated (UTI in men)
-Antibiotics per primary.
#Hyperkalemia
-Acute.
-Combination of CKD and iatrogenic from medications.
-Lisinopril on hold.
-Other possible contributors to hyperkalemia include beta blockers, heparin.
-Potassium was elevated on presentation. Beta bradley/heparin added for NSTEMI, making them less likely to be responsible. Lisinopril has been held without change in K+.
#HTN
-Chronic, acutely elevated on presentation.
-Metoprolol succinate started by primary service.
-Hold lisinopril with hyperkalemia.
#CKD3b
-Chronic, stable.
-Chronic moderate hydronephrosis of right kidney
-Follow renal function (he received gentamicin in the ER).
#Left shoulder pain S/P cortisone injection
#Type II DM, with hyperglycemia, Hgba1c pending
#HLD, LDL 51, continue atorvastatin 40mg
#Obesity, BMI 44, he would benefit from weight loss
#Tobacco use (chew), cessation recommended
#JOHN on CPAP
#Prior hypercalcemia, stable
#BPH
Subjective/Interval History:
No further chest/neck pain.
K remains elevated.
Physical Exam
Vital Signs/Labs
Vital Signs
Temp Pulse Resp BP Pulse Ox
36.9 C 78 20 137/66 99
01/20/24 07:47 01/20/24 08:30 01/20/24 07:47 01/20/24 07:49 01/20/24 07:47
01/18/24 01/19/24 01/20/24
11:59 11:59 11:59
Actual Weight 135 kg 132.4 kg
01/20/24 05:04
01/20/24 05:04
APTT 66.9 Sec (23.4-35.0) H 01/20/24 05:04
Triglycerides 134 mg/dl (10-149) 01/18/24 07:26
LDL Cholesterol, Calc 51 mg/dl 01/18/24 07:26
VLDL Cholesterol, Calc 26 mg/dl (0-30) 01/18/24 07:26
HDL Cholesterol 40 mg/dl 01/18/24 07:26
LAB Results
01/17/24 01/18/24 01/18/24
17:29 00:32 07:26
Troponin I 8.540 H* 10.500 H* 13.900 H* D
01/18/24 01/18/24
14:48 16:00
Troponin I 9.940 H* D Cancelled
Physical Exam
Constitutional: No acute distress and Comfortable
EENT: Anicteric and Moist mucous membranes
Cardiovascular: Rhythm & rate is regular, Pedal edema is absent, JVD pressure is normal, S1S2 is normal and Murmur/rub/gallop absent
Respiratory: Respiratory effort normal, Lungs clear to auscul., Wheeze Absent, Crackles Absent and Rhonchi Absent
GI: Soft, Distention absent, Non tender and Normal bowel sounds
Neuro/Psych: AO x 3
Data Reviewed
-
Date of Service: January 20, 2024
Medical Decision Making: Reviewed Test Results, Independent Historian Assessment, Test Interpretation and Review of Case with other Provider
EKG: Tracing Personally Visualized and interpreted and Report Reviewed by me
Echo: Report Reviewed by me
X-Ray/CT/US/MRI/NUC/PET: Image Personally Visualized and interpreted and Report Reviewed by me
Labs: Labs Reviewed by me
Old Records: Reviewed
[2024-01-20 10:02] LABS: ACT-LR - POC 388 Seconds (116-155)
[2024-01-20 10:32] LABS: ACT-LR - POC 287 Seconds (116-155)
--- NOTE | 2024-01-20 11:24 | ITS.CL.ANGIO ---
Service Secretary - Angioplasty
Angioplasty
Procedure Report:
CARDIAC CATHETERIZATION REPORT
Date of Procedure: 01/20/2024
Referring: Priyanka Perez M.D.
INDICATION: Non-ST elevation myocardial infarction.
PROCEDURE:
1. Left heart catheterization
2. Coronary angiography.
3. Successful angioplasty of the proximal margin of the first diagonal.
ACCESS:
6 Spanish right ulnar artery using modified Seldinger technique under ultrasound guidance.
CATHETERS:
1. 5 Spanish JR4.
2. 5 Spanish JL 4.
3. 6 Spanish EBU 4.0 guiding catheter.
4. 6 Spanish EBU 4.5 guiding catheter.
HEMODYNAMIC DATA
Weight (kg): 132
AO (s/d/x, mmHg): 155/83/114
LV (s/x mmHg): 157/21
LEFT VENTRICULOGRAPHY: Not performed.
CORONARY ANGIOGRAPHY
Dominance: Right.
Left Main: Normal size, trifurcating vessel. There is no coronary artery disease.
LAD: Normal size vessel giving rise to 2 diagonals. The vessel is densely calcified throughout its proximal margin. There is a 30% lesion in the mid vessel, spanning the origin of the second diagonal. There is a 50% lesion in the distal
vessel. There is a 99% lesion in the proximal margin of the first diagonal with RIC I flow.
Ramus: Normal size vessel supplying the anterolateral wall. There is extreme tortuosity. There is no coronary artery disease.
Circumflex: Normal size, nondominant vessel giving rise to 1 significant marginal that traces the AV groove, parallel to the true circumflex then turned to supply the inferolateral wall. There are minor luminal irregularities.
RCA: Large size, dominant vessel. There are luminal irregularities.
INTERVENTION(S)
1. Successful angioplasty of the 99% proximal D1 lesion (2.25 x 12 NC balloon) with reduction in stenosis to 50%, restoring RIC-3 flow.
2. Unsuccessful placement of a drug-eluting stent in the diagonal lesion.
Narrative:
The decision was made to proceed with percutaneous coronary intervention. The diagnostic catheter was removed over a wire and a 6Fr EBU 3.5 guiding catheter was advanced to the aortic root and seated in the left main coronary artery. Additional
heparin was given and a Power Turn Flex wire was advanced into the ostium of the diagonal with some difficulty. A GuideLiner and 2.0 x 12 balloon was advanced for support. This allowed the workhorse wire to progress, though at this point, I was
concerned that we were not in the true lumen.
The 2.0 x 12 balloon and GuideLiner were withdrawn and a quick cross microcatheter was advanced using a balloon/wire pinning technique. The quick cross microcatheter would not advance into the distal vessel, but was wedged firmly enough in the
proximal vessel that we felt confident we were in the diagonal. The power turn flex wire was withdrawn and injection was performed through the quick cross microcatheter. This demonstrated that we were in the true lumen. A whisper wire was
advanced through the microcatheter and into the distal diagonal. The quick cross microcatheter was withdrawn. The GuideLiner was readvanced over the 2.0 x 12 semicompliant balloon.
The 99% proximal D1 lesion was predilated with a 2.0 x 12 semi-compliant balloon to 12 tomas. The majority of the lesion released successfully, though there was 1 angulated area with persistent dog boning. The semicompliant balloon was taken up to
16 tomas, but again there was no improvement in the lesion. The semicompliant balloon was withdrawn and a 2.25 x 12 noncompliant balloon was advanced. This balloon was inflated to 18 tomas with release of the proximal diagonal lesion. The
non-compliant balloon was removed and a Medtronic [place] 2.25 x 22 drug-eluting stent was advanced. Unfortunately, this stent would not advance into the distal artery. The stent was removed and a 2.25 x 12 drug-eluting stent was advanced.
Unfortunately, this stent would not pass into the artery as well. In the process of trying to deliver the stent, the GuideLiner became progressively disengaged as did the guiding catheter. We spent a considerable amount of time ensuring good
support with the catheter and the GuideLiner. Once the GuideLiner had moved back into the left main coronary artery, we had significant difficulty moving the GuideLiner past the proximal LAD, in spite of no angiographic obstruction.
We readvanced the 2.0 x 12 balloon, but could not pass the proximal LAD. This balloon was exchanged for a new balloon, but would not pass the proximal LAD. We inflated this balloon to center the GuideLiner and attempted sheeting technique. This
was unsuccessful. The balloon was withdrawn and a 1.5 x 12 NC balloon was advanced, again failing to advance beyond the proximal LAD.
During the course of this manipulation, the guide was progressively moved out of the coronary artery and the GuideLiner buckled and prolapsed into the ascending aorta causing complete loss of wire access to the coronary.
All equipment was removed and a 6 Spanish EBU 4.5 guiding catheter was advanced for better support. The guide was seated in the coronary artery with some difficulty. A Fielder XT wire was advanced into the coronary artery through the quick cross
microcatheter device. In spite of numerous attempts, the Fielder XT wire would not traverse the diagonal. Catheter position and microcatheter position were adjusted several times. The wire was reshaped several times. In spite of many
interventions, we could not reaccessed the diagonal. Angiography was performed in orthogonal views showing that the lesion had been reduced to 50% and RIC-3 flow has been restored. Given the presence of chronic kidney disease and the amount of
contrast and radiation already consumed, the decision was made to end the procedure and manage his coronary artery disease medically.
Closure Device: Vascular band for the right ulnar artery.
Radiation (mGy): 2258.58
DAP (cm2.Gy): 223.72
Fluoroscopy time (minutes): 38.7
Sedation time (minutes): 115
CONCLUSIONS
1. Right dominant circulation with luminal irregularities in the RCA and circumflex, a 30% lesion in the mid LAD, a 50% lesion in the distal LAD and a 99% lesion in the proximal margin of the first diagonal, status post successful balloon
angioplasty (2.25 x 12 NC balloon) with reduction in stenosis to 50%, restoring RIC-3 flow.
2. Unsuccessful delivery of Medtronic [place] stents. In retrospect, this lesion appears to be chronically totally occluded rather than an acute lesion.
RECOMMENDATIONS:
1. Expectant management after cardiac catheterization via right ulnar approach.
2. Limited weight bearing on the right wrist for one week.
3. Medical management of coronary artery disease including his angioplasty diagonal vessel.
4. Start aspirin 81 mg daily. Load with clopidogrel 600 mg then continue 75 mg daily.
5. Aggressive risk factor modification, including diabetes control and hyperlipidemia control.
Copy to: Priyanka Perez M.D., Pranay Martinez D.O.
Maximiliano Jacques DO, FACC, FACP
[2024-01-20] MEDS: NOVOLOG FLEXPEN SC (11:34)
[2024-01-20] MEDS: NSS 1000 IV (11:36)
--- NOTE | 2024-01-20 11:37 | CM ---
Pricing on Brilinta through the patient's [facility] is $13.60 for a 30 day and $39.65 for a 90 day supply mail order. I called the patients [facility] and its in stock. I will place a free 30 day coupon in the patients red discharge folder.
--- NOTE | 2024-01-20 12:26 | CM ---
Addendum entered by Gertrudis Vargas RN 01/20/24 12:41:
Patient lives in a in law suite on the 2nd floor and landlord lives downstairs.
Original Note:
Chart reviewed. Patient is independent of ADLS, lives alone in a [address], [address], 0 [address]. Plan is for the patient to return home. CM to follow
[2024-01-20 13:20] LABS: Glucose - Point of Care 228 mg/dl (70-99)
[2024-01-20] MEDS: PLAVIX 600 MG PO (13:24)
[2024-01-20] MEDS: ANCEF IV (13:26)
[2024-01-20] MEDS: PROCARDIA XL (EXTENDED RELEASE) 30 MG PO (13:28)
[2024-01-20] MEDS: TOPROL XL 25 MG PO (13:29)
[2024-01-20] MEDS: PROSCAR 5 MG PO (13:29)
[2024-01-20] MEDS: NOVOLOG FLEXPEN 10 UNITS SC ×2 (14:01→18:11)
[2024-01-20] MEDS: NOVOLOG FLEXPEN-HIGH RESISTANCE 4 UNITS SC (14:01)
[2024-01-20] MEDS: LANTUS 0.149999999999999994 UNITS SC ×2 (14:46→21:15)
[2024-01-20] MEDS: SODIUM BICARBONATE IV (15:13)
[2024-01-20] MEDS: ANCEF 5 IV ×2 (15:18→22:55)
--- NOTE | 2024-01-20 15:27 | W.PN.HOSP.TC ---
Today's Communication/Plan
-
L shoulder xray
continue cardiac meds
Lokelma x 1
Assessment / Plan
Assessment / Plan
Assessment:
Hx of allergy to iodine
- On Protocol with high dose prednisone & Benadryl as needed
NSTEMI
- trop peaked at 10
- Echo: pending
- s/p [facility] 01/19: 1. Right dominant circulation with luminal irregularities in the RCA and circumflex, a 30% lesion in the mid LAD, a 50% lesion in the distal LAD and a 99% lesion in the proximal margin of the first diagonal, status post successful
balloon angioplasty (2.25 x 12 NC balloon) with reduction in stenosis to 50%, restoring RIC-3 flow. Unsuccessful delivery of Medtronic [place] stents. In retrospect, this lesion appears to be chronically totally occluded rather than an acute lesion.
- continue medical management with ASA/Plavix
- continue statin
- continue BB
- CBC cards following
IDDM
- continue basal/bolus insulin
- A1c: 8.0%
CKD stage 3b
hyperkalemia
- s/p IVF
- redose Lokelma today
- CHANTEL stopped
- Nephrology following
MSSA UTI
- continue Ancef, day 2
Obesity BMI 44
Essential HTN
- continue Procardia
L shoulder pain
- presumed arthritis by PCP and s/p steroid injection last week
- obtain baseline X-ray
- OP Ortho referral
DVT ppx:SCDs
Code: Full
Anticipated Discharge: > 48 hours
Subjective/Interval History
-
Date of Service: January 20, 2024
Reports ongoing shoulder pain in the L shoulder which he recently got steroids injected by PCP
seen post cath; no CP or SOB
Objective Data
-
Labs:
Laboratory Results
01/20/24 01/20/24
05:04 11:40
WBC 16.1 H
Hgb 8.7 L
Hct 26.5 L
Plt Count 305
APTT 66.9 H Cancelled
Sodium 136
Potassium 5.8 H
Chloride 107
Carbon Dioxide 17 L
BUN 60 H
Creatinine 2.2 H
Glucose 161 H
Calcium 9.1
Total Bilirubin 0.3
AST 35
ALT 20
Alkaline Phosphatase 120
Vital Signs:
Vital Signs
Temp Pulse Resp BP Pulse Ox
98.4 F 92 20 178/77 99
01/20/24 07:47 01/20/24 13:28 01/20/24 07:47 01/20/24 13:28 01/20/24 07:47
I&O
01/19/24 01/20/24 01/21/24
06:59 06:59 06:59
Intake Total 1250 / 1250 950 / 950
Balance 1250 / 1250 950 / 950
Physical Exam
-
General: No Apparent Distress
HEENT: Normocephalic and Atraumatic
Respiratory: Negative Wheezes
Cardiac: Regular Rhythm and S1/S2
GI: Soft and Nontender
Genito-urinary: No Costovertebral Tender
Neuro: AO x 3
Psych: Calm
Data Reviewed
-
Total Time Spent with Patient (in minutes): 42
Labs: Labs Reviewed by me
--- NOTE | 2024-01-20 16:43 | W.PN.NEPH.PH ---
Today's Communication / Plan
-
- continue fluids
- medical management of hyperK
Assessment/Plan
-
Impression:
NSTEMI (troponin peak 10)
UTI
CKD 3b/4
Hyperkalemia
Metabolic acidosis
Diabetes
Hypertension
Plan:
GFR at baseline
s/p cardiac cath
plan for fluids until bag expires
hyperkalemia noted, given lokelma today --> from prednisone?
CHANTEL inhibitor held, metformin held in setting of metabolic acidosis
Can utilize low dose Procardia for blood pressure control while off CHANTEL
-
-
Date of Service: January 20, 2024
CC / HPI / ROS
-
Chief Complaint:
c/f LILIAN
History of Present Illness:
Cr at baseline
K elevated to 5.8 --> medical management
Review of Systems:
feeling well s/p cath
Labs
-
Labs:
WBC 16.1 10^3/uL (4.8-10.8) H 01/20/24 05:04
RBC 3.15 10^6/uL (4.70-6.10) L 01/20/24 05:04
Hgb 8.7 g/dL (13.0-18.0) L 01/20/24 05:04
Hct 26.5 % (39.0-52.0) L 01/20/24 05:04
Plt Count 305 10^3/uL (130-400) 01/20/24 05:04
Sodium 136 mmol/L (135-145) 01/20/24 05:04
Potassium 5.8 mmol/L (3.5-5.1) H 01/20/24 05:04
Chloride 107 mmol/L (98-107) 01/20/24 05:04
Carbon Dioxide 17 mmol/L (22-30) L 01/20/24 05:04
BUN 60 mg/dl (9-20) H 01/20/24 05:04
Creatinine 2.2 mg/dL (0.7-1.3) H 01/20/24 05:04
eGFR 32.63 01/20/24 05:04
Glucose 161 mg/dl (70-99) H 01/20/24 05:04
Calcium 9.1 mg/dl (8.4-10.2) 01/20/24 05:04
Albumin 3.9 g/dl (3.5-5.0) 01/20/24 05:04
Physical Exam
-
Vital Signs:
Vital Signs
Temp Pulse Resp BP Pulse Ox
98.3 F 92 20 178/77 99
01/20/24 16:32 01/20/24 13:28 01/20/24 16:32 01/20/24 13:28 01/20/24 07:47
Cardiovascular:: Regular rate and rhythm
Respiratory:: Bilateral: CTA
Lung Excursion:: Normal
Abdomen:: Nontender and Soft
Bowel Sounds:: Normal
Extremity Edema:: +1: Bilateral:
Hemphill Catheter: No
[2024-01-20 17:19] LABS: Glucose - Point of Care 387 mg/dl (70-99)
[2024-01-20] MEDS: NOVOLOG FLEXPEN-HIGH RESISTANCE 12 UNITS SC (18:12)
[2024-01-20] MEDS: LOKELMA 10 GRAM PO (18:15)
[2024-01-20] MEDS: LIPITOR 40 MG PO (18:15)
--- NOTE | 2024-01-20 21:00 | PTCARENOTE ---
Assumed care at 1900. Patient walking in [place]. Right wrist bruised, tender and slightly swollen. Pulses palapable. Elevated on pillow. Reinforced precautions. SR on telemetry. Blood sugar 357, Hellen CHEW notified, orders received for
insulin and given. Will reassess blood sugar in 2 hours per policy. Call robins in reach
[2024-01-20 21:13] LABS: Glucose - Point of Care 357 mg/dl (70-99)
[2024-01-20] MEDS: NOVOLOG FLEXPEN 12 UNITS SC (21:29)
[2024-01-20] MEDS: TUMS 1 TABLET PO (22:55)
[2024-01-20 23:23] LABS: Glucose - Point of Care 187 mg/dl (70-99)
[2024-01-21 04:33] VITALS: BP 159/76
[2024-01-21 05:21] LABS: % Basophils 0.1 % (0-2); % Lymphocytes 8.7 % (20.5-51.1); % Monocytes 6.6 % (1.7-9.3); % Neutrophils 83.6 % (42.2-75.2); Absolute Immature Granulocytes 0.3 10^3/uL (0-0.05); Absolute Lymphocytes 2.2 10^3/uL (1.2-3.4); Absolute Monocytes 1.7 10^3/uL (0.1-0.6); Absolute Neutrophils 21.5 10^3/uL (1.4-6.5); Hemoglobin 8.7 g/dL (13.0-18.0); Mean Corp Hgb Conc. 33.5 g/dL (33.0-37.0); Mean Corpuscular Volume 83.6 fL (80.0-94.0); Mean Platelet Volume 10.4 fL (7.4-10.4); Nucleated Red Blood Cells % 0 % (-); Platelet Count 348 10^3/uL (130-400); Red Blood Cell Count 3.11 10^6/uL (4.70-6.10); White Blood Cell Count 25.7 10^3/uL (4.8-10.8)
[2024-01-21 06:31] LABS: ALT (SGPT) 14 U/L (0-50); AST (SGOT) 25 U/L (17-59); Albumin 3.8 g/dl (3.5-5.0); Alkaline Phosphatase 98 U/L (38-126); Blood Urea Nitrogen 64 mg/dl (9-20); Calcium 8.8 mg/dl (8.4-10.2); Carbon Dioxide 18 mmol/L (22-30); Chloride 105 mmol/L (98-107); Estimated Creatinine Clearance 43 ml/min; Glucose 99 mg/dl (70-99); Potassium 5.2 mmol/L (3.5-5.1); Sodium 136 mmol/L (135-145); Total Bilirubin 0.3 mg/dl (0.2-1.3); Total Protein 7.5 g/dl (6.3-8.2); eGFR 30.93
[2024-01-21 07:17] VITALS: BP 140/77
[2024-01-21 07:18] LABS: Glucose - Point of Care 125 mg/dl (70-99)
--- NOTE | 2024-01-21 08:42 | W.PN.CD ---
Today's Communication / Plan
-
We will sign off.
Plan 1 yr of DAPT if clinically tolerated
F/u in our office arranged
Impression / Plan
-
Background: 63 y/o male with IDDM2, HTN, HLD, JOHN on CPAP and CKD3b admitted with UTI and concomitant neck pain, found to have NSTEMI.
NSTEMI/CAD, peak trop 13.9, EKG unremarkable
- Single vessel and that was a branch Diag => PTCA to 50% with unsuccessful MARAINNE placement
- Normal LVEF on echo
- His presentation for [place] is atypical
- Not convinced his pain was ischemic pain
- The culprit Diag may have been a chronic lesion
UTI
Hyperkalemia
HTN
CKD3b
Left shoulder pain S/P cortisone injection
Type II DM
HLD, LDL 51, continue atorvastatin 40mg
Obesity, BMI 44, he would benefit from weight loss. His weight is way down from peak
Tobacco use (chew), cessation recommended
JOHN on CPAP
Prior hypercalcemia, stable
BPH
Subjective:
No CP/shoulder pain.
Physical Exam
Vital Signs/Labs
Vital Signs
Temp Pulse Resp BP Pulse Ox
98.3 F 75 20 140/77 98
01/21/24 07:18 01/21/24 07:45 01/21/24 07:18 01/21/24 07:17 01/21/24 07:18
01/20/24 01/21/24 01/22/24
06:59 06:59 06:59
Actual Weight 132.4 kg
01/21/24 04:41
01/21/24 04:41
APTT Cancelled 01/20/24 11:40
Triglycerides 134 mg/dl (10-149) 01/18/24 07:26
LDL Cholesterol, Calc 51 mg/dl 01/18/24 07:26
VLDL Cholesterol, Calc 26 mg/dl (0-30) 01/18/24 07:26
HDL Cholesterol 40 mg/dl 01/18/24 07:26
LAB Results
01/18/24 01/18/24
14:48 16:00
Troponin I 9.940 H* D Cancelled
Physical Exam
Constitutional: No acute distress
EENT: Anicteric
Cardiovascular: Rhythm & rate is regular and Pedal edema is absent
Respiratory: Respiratory effort normal and Lungs clear to auscul.
GI: Soft and Distention absent
Neuro/Psych: AO x 3
Other: Cath Site (mild ecchymosis, hand perfusion/sensation normal)
Data Reviewed
-
Date of Service: January 21, 2024
[2024-01-21] MEDS: NOVOLOG FLEXPEN-HIGH RESISTANCE 1 UNITS SC (09:20)
[2024-01-21] MEDS: NOVOLOG FLEXPEN 10 UNITS SC (09:20)
[2024-01-21] MEDS: ANCEF 5 IV (09:21)
[2024-01-21] MEDS: LANTUS SC (09:22)
[2024-01-21] MEDS: PLAVIX 75 MG PO (09:34)
[2024-01-21] MEDS: PROCARDIA XL (EXTENDED RELEASE) 30 MG PO (09:34)
[2024-01-21] MEDS: PROSCAR 5 MG PO (09:34)
[2024-01-21] MEDS: LOW STRENGTH ASPIRIN 81 MG PO (09:34)
[2024-01-21] MEDS: TOPROL XL 25 MG PO (09:34)
[2024-01-21] MEDS: LOKELMA 5 GRAM PO (09:35)
[2024-01-21] MEDS: PROTONIX 40 MG PO (09:41)
[2024-01-21 09:47] VITALS: BMI 45.4
[2024-01-21] MEDS: LANTUS 0.149999999999999994 UNITS SC (09:51)
[2024-01-21 11:17] VITALS: BP 114/74
--- NOTE | 2024-01-21 11:40 | W.PN.HOSP.TC ---
Today's Communication/Plan
-
dc to home
Assessment / Plan
Assessment / Plan
Assessment:
Hx of allergy to iodine
- On Protocol with high dose prednisone & Benadryl as needed
NSTEMI
- trop peaked at 13.9
- Echo: Concentric LVH with normal wall motion and EF 66%
- s/p [facility] 01/19: 1. Right dominant circulation with luminal irregularities in the RCA and circumflex, a 30% lesion in the mid LAD, a 50% lesion in the distal LAD and a 99% lesion in the proximal margin of the first diagonal, status post successful
balloon angioplasty (2.25 x 12 NC balloon) with reduction in stenosis to 50%, restoring RIC-3 flow. Unsuccessful delivery of Medtronic [place] stents. In retrospect, this lesion appears to be chronically totally occluded rather than an acute lesion.
- continue medical management with ASA/Plavix
- continue statin
- continue BB
- CBC cards follow up outpatient
IDDM
- continue basal/bolus insulin
- hold MFM at discharge
- A1c: 8.0%
CKD stage 3b
hyperkalemia
- s/p IVF
- redose Lokelma today
- CHANTEL stopped
- Nephrology following
MSSA UTI
- continue Ancef, day 10/12
Obesity BMI 44
Essential HTN
- continue Procardia
L shoulder pain
- presumed arthritis by PCP and s/p steroid injection last week
- Xray negative
- OP Ortho referral
DVT ppx: SCDs
Code: Full
More than 30 minutes spent in discharge including
Final examination of the patient
Summarizing hospital stay
Instructions for continuing care to all relevant caregivers
Preparation of discharge records, prescriptions, and referral forms
Total time spent (in minutes): 41
Anticipated Discharge: Today
Subjective/Interval History
-
Date of Service: January 21, 2024
feels well today, no complaints
Objective Data
-
Labs:
Laboratory Results
01/21/24
04:41
WBC 25.7 H
Hgb 8.7 L
Hct 26.0 L
Plt Count 348
Sodium 136
Potassium 5.2 H
Chloride 105
Carbon Dioxide 18 L
BUN 64 H
Creatinine 2.3 H
Glucose 99
Calcium 8.8
Total Bilirubin 0.3
AST 25
ALT 14
Alkaline Phosphatase 98
Vital Signs:
Vital Signs
Temp Pulse Resp BP Pulse Ox
98.9 F 76 18 140/77 98
01/21/24 11:06 01/21/24 09:34 01/21/24 11:06 01/21/24 09:34 01/21/24 11:06
I&O
01/20/24 01/21/24 01/22/24
06:59 06:59 06:59
Intake Total 950 / 950 1669 / 1669
Balance 950 / 950 1669 / 1669
Physical Exam
-
General: No Apparent Distress
HEENT: Normocephalic and Atraumatic
Respiratory: Negative Wheezes
Cardiac: Regular Rhythm and S1/S2
GI: Soft and Nontender
Musculoskeletal: No Edema
Neuro: AO x 3
Psych: Calm
Data Reviewed
-
Total Time Spent with Patient (in minutes): 41
Labs: Labs Reviewed by me
--- NOTE | 2024-01-21 11:51 | W.DS.TRANS ---
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
-
Discharge Instructions:
Discharge Diagnosis/Procedures NSTEMI, s/p angioplasty only to Diagonal artery
Diet Diabetic, Carb Controlled,2 Gram Sodium
Activity As tolerated
Driving Restrictions No driving for 24 hours
Other Services Cardiac Rehab
Instructions:
Stand-Alone Forms: DC Instructions- Cath/EP Lab
Changes to Home Medications: Yes
Discharge Medications:
DC Medications w/original date entered in [employer]
insulin lispro 100 unit/mL subcutaneous solution (Humalog U-100 Insulin) 10 unit SC BIDWMEAL Diabetes 10/18/17
dulaglutide 1.5 mg/0.5 mL subcutaneous pen injector (Trulicity) 1.5 mg SC SA Diabetes 08/07/22
pantoprazole 40 mg tablet,delayed release 40 mg PO BID 90 days #180 tabs 08/10/22
finasteride 5 mg tablet 5 mg PO DAILY Urinary Issue 01/17/24
aspirin 81 mg chewable tablet 81 mg PO DAILY #100 tabs 01/21/24
atorvastatin 40 mg tablet 40 mg PO QPM High Cholesterol #30 tabs 01/21/24
cephalexin 500 mg capsule 500 mg PO Q12H 8 days #16 caps 01/21/24
clopidogrel 75 mg tablet 75 mg PO DAILY #30 tabs 01/21/24
insulin glargine 100 unit/mL (3 mL) subcutaneous pen (Lantus Solostar U-100 Insulin) 15 unit (0.15 mL) SC BID Diabetes #15 mL 01/21/24
metoprolol succinate 25 mg tablet,extended release 24 hr 25 mg PO DAILY #30 tabs 01/21/24
nifedipine 30 mg tablet,extended release 30 mg PO DAILY #30 tabs 01/21/24
Home Medication Changes
Metformin and CHANTEL Stopped
Pending Results: No
Total time spent discharging patient (in min): 41
[2024-01-21 12:58] LABS: Glucose - Point of Care 127 mg/dl (70-99)
[2024-01-21] MEDS: NOVOLOG FLEXPEN-HIGH RESISTANCE SC (13:06)
[2024-01-21] MEDS: NOVOLOG FLEXPEN SC (13:06)
--- NOTE | 2024-01-21 14:51 | W.PN.NEPH.PH ---
Today's Communication / Plan
-
- for discharge
Assessment/Plan
-
Impression:
NSTEMI (troponin peak 10)
UTI
CKD 3b/4
Hyperkalemia
Metabolic acidosis
Diabetes
Hypertension
Plan:
GFR at baseline
s/p cardiac cath
feeling well today
mild hyperK improved
continue to hold CHANTEL, can restart as outpatient
Can utilize low dose Procardia for blood pressure control while off CHANTEL
f/u with Dr. Nicholson in 6 weeks, plan for blood work 1 week post discharge
-
-
Date of Service: January 21, 2024
CC / HPI / ROS
-
Chief Complaint:
c/f LILIAN
History of Present Illness:
Cr at baseline
K elevated to 5.2 today
Review of Systems:
feeling well s/p cath
Labs
-
Labs:
WBC 25.7 10^3/uL (4.8-10.8) H 01/21/24 04:41
RBC 3.11 10^6/uL (4.70-6.10) L 01/21/24 04:41
Hgb 8.7 g/dL (13.0-18.0) L 01/21/24 04:41
Hct 26.0 % (39.0-52.0) L 01/21/24 04:41
Plt Count 348 10^3/uL (130-400) 01/21/24 04:41
Sodium 136 mmol/L (135-145) 01/21/24 04:41
Potassium 5.2 mmol/L (3.5-5.1) H 01/21/24 04:41
Chloride 105 mmol/L (98-107) 01/21/24 04:41
Carbon Dioxide 18 mmol/L (22-30) L 01/21/24 04:41
BUN 64 mg/dl (9-20) H 01/21/24 04:41
Creatinine 2.3 mg/dL (0.7-1.3) H 01/21/24 04:41
eGFR 30.93 01/21/24 04:41
Glucose 99 mg/dl (70-99) 01/21/24 04:41
Calcium 8.8 mg/dl (8.4-10.2) 01/21/24 04:41
Albumin 3.8 g/dl (3.5-5.0) 01/21/24 04:41
Physical Exam
-
Vital Signs:
Vital Signs
Temp Pulse Resp BP Pulse Ox
98.9 F 68 18 114/74 98
01/21/24 11:06 01/21/24 12:45 01/21/24 11:06 01/21/24 11:17 01/21/24 11:06
Cardiovascular:: Regular rate and rhythm
Respiratory:: Bilateral: CTA
Lung Excursion:: Normal
Abdomen:: Nontender and Soft
Bowel Sounds:: Normal
Extremity Edema:: None: Bilateral:
Hemphill Catheter: No
== END 2024-01-21 16:02 | disposition home or self-care (01) | DRG 251 ==
LOC: IVU 19:45
PROVIDERS: Clinical Nurse Specialist Family Health; Internal Medicine Cardiovascular Disease; ADMITTING PHYSICIAN General Practice; ATTENDING PHYSICIAN Internal Medicine; CONSULT PHYSICIAN Internal Medicine Cardiovascular Disease; CONSULT PHYSICIAN Specialist; EMERGENCY PHYSICIAN Emergency Medicine; FAMILY PHYSICIAN Family Medicine
PROC: 5A09357 Assistance with Respiratory Ventilation, Less than 24 Consecutive Hours, Continuous Positive Airway Pressure (ICD-10-PCS; 2024-01-17)
PROC: 4A023N7 Measurement of Cardiac Sampling and Pressure, Left Heart, Percutaneous Approach (ICD-10-PCS; 2024-01-20)
PROC: B2111ZZ Fluoroscopy of Multiple Coronary Arteries using Low Osmolar Contrast (ICD-10-PCS; 2024-01-20)
PROC: 02703ZZ Dilation of Coronary Artery, One Artery, Percutaneous Approach (ICD-10-PCS; 2024-01-20)
DX: I21.4 Non-ST elevation (NSTEMI) myocardial infarction (principal); E87.20 Acidosis, unspecified; N39.0 Urinary tract infection, site not specified; Z68.42 Body mass index [BMI] 45.0-49.9, adult; N18.32 Chronic kidney disease, stage 3b; E11.22 Type 2 diabetes mellitus with diabetic chronic kidney disease; E87.5 Hyperkalemia; T38.0X5A Adverse effect of glucocorticoids and synthetic analogues, initial encounter; I12.9 Hypertensive chronic kidney disease with stage 1 through stage 4 chronic kidney disease, or unspecified chronic kidney disease; E78.00 Pure hypercholesterolemia, unspecified; K21.9 Gastro-esophageal reflux disease without esophagitis; I25.10 Atherosclerotic heart disease of native coronary artery without angina pectoris; M25.512 Pain in left shoulder; J45.909 Unspecified asthma, uncomplicated; F17.290 Nicotine dependence, other tobacco product, uncomplicated; N40.0 Benign prostatic hyperplasia without lower urinary tract symptoms; G47.33 Obstructive sleep apnea (adult) (pediatric); F32.A Depression, unspecified; D63.1 Anemia in chronic kidney disease; K76.0 Fatty (change of) liver, not elsewhere classified; E66.09 Other obesity due to excess calories; M54.2 Cervicalgia; E11.65 Type 2 diabetes mellitus with hyperglycemia; E83.52 Hypercalcemia; B95.61 Methicillin susceptible Staphylococcus aureus infection as the cause of diseases classified elsewhere; Z91.041 Radiographic dye allergy status; Z82.49 Family history of ischemic heart disease and other diseases of the circulatory system; Z87.442 Personal history of urinary calculi; Z79.4 Long term (current) use of insulin
CPT/HCPCS: 71046; 73030; 80048; 80053; 80061; 81003; 81015; 82607; 82728; 82746; 82962; 83036; 83540; 83550; 83605; 84484; 85025; 85730; 87040; 87086; 87147; 87186; 92920; 93005; 93306; 93458; 94660; 94760; 96361; 96365; 96366; 96367; 96375; 97161; 99152; 99153; 99285; C1725; C1769; C1874; C1887; J7030; Q9967